=== PATIENT | male | born 1985 | race Caucasian/White ===

== ENCOUNTER 2016-10-28 00:01 | Emergency (ER) | payer SELFPAY ==
[~2016-10-28] VITALS: Ht 170.2 cm; Wt 64.6 kg
[2016-10-28 00:01] VITALS: TEMP 98.1; Ht 170.2 cm; Wt 64.6 kg
[~2016-10-28 00:01] MED LIST: ALPR1TAB7 PO; CEPH-583 PO; CYCL-375 PO; HYDR-4074 PO; NAPR220C11 PO; NAPR500T3 PO; TRAM50TA4 PO
--- OUTSIDE RECORDS SUMMARY | 2016-10-28 00:09 | XMS REPORT | Referral Summary ---
Author Author [facility], Family Medicine Organization [facility] Address Unknown Phone Unavailable Care Team Providers Care Lieutenant Ballistics Name Role Phone Mary Beth Berry Primary Care Physician [phone] Encounter Date(s): 08/14/15 - 08/14/15 [facility] [address] [place] [address]- Discharge Diagnosis: Chronic low back pain Discharge Diagnosis: Anxiety Discharge Diagnosis: Postherpetic neuralgia Discharge Disposition: 01-Home or Self Care Attending Physician: Maureen Rice APRN Admitting Physician: Maureen Rice APRN Vital Signs Most recent to 1 oldest [Reference Range]: Temperature Tympanic 36.4 degC [36.6-38.1 degC] *LOW* (08/14/15 2:46 PM) Peripheral Pulse 96 bpm Rate [60-100 bpm] (08/14/15 2:46 PM) Respiratory Rate 20 br/min [14-20 br/min] (08/14/15 2:46 PM) Blood Pressure 124/80 mmHg [90-140/60-90 mmHg] (08/14/15 2:46 PM) Problem List Condition Effective Dates Status Health Status Informant Chronic low back Active pain(Confirmed) Anxiety(Confirmed) Active Radiculopathy(Confir Active med) Allergies, Adverse Reactions, Alerts Substance Reaction Severity Status Latex Active Medications ALPRAZolam 1 mg oral tablet 1 mg 1 tabs, Oral, BID, as needed for anxiety, 0 Refill(s) Start Date: 07/02/15 Status: Ordered CeleXA 20 mg oral tablet 10 mg 0.5 tabs, Oral, Daily, # 15 tabs, 0 Refill(s), Pharmacy: [facility], 0.5 tabs Oral Daily Start Date: 08/14/15 Status: Ordered cyclobenzaprine 10 mg oral tablet 10 mg 1 tabs, Oral, TID, as needed for spasm, # 60 tabs, 0 Refill(s) Start Date: 01/16/15 Status: Ordered gabapentin 300 mg oral capsule 300 mg 1 caps, Oral, TID, # 60 caps, 3 Refill(s), Pharmacy: [id number], 1 caps Oral TID Start Date: 07/02/15 Status: Ordered H[place] 7.5 mg-325 mg oral tablet 1 tabs, Oral, BID, as needed for pain, # 10 tabs, 0 Refill(s) Start Date: 07/26/15 Status: Ordered [place]agan 7.5 mg-325 mg oral tablet tabs, Oral, BID, 0 Refill(s) Start Date: 07/02/15 Status: Ordered traMADol 50 mg oral tablet 50 mg 1 tabs, Oral, q4hr, as needed for pain, [facility], # 50 tabs, 0 Refill(s), 1 tabs Oral q4hr Start Date: 12/05/14 Status: Ordered Results No data available for this section Immunizations Vaccine Date Refusal Reason tetanus/diphth/pertuss (Tdap) adult/adol 09/04/13 Procedures No data available for this section Social History Social History Type Response Smoking Status Current every day smoker; Tobacco use per day: 1 Pack; Number of years: 12 Assessment and Plan Extracted from: Title: Office Visit Author: Maureen Rice APRN Date: 08/14/15 Note-neuralgia/anxiety Assessment/Plan Anxiety Discussed adding long-term medicationto decrease hisanxiety overall. Start Ladrzo50 mg one half tablet everyday. Side effects discussed. Follow-up with myself or Dr. Berry in one month. Encouraged him to continue following up with the therapist. Continue alprazolam twice a day as needed. Chronic low back pain Continue to follow with pain specialty. He voices he spilled his cyclobenzaprine. Wanted us to refill it. I encouraged him to make those medication refill requestthrough pain management. Ordered: Office Visit Level 3 Est 56837 Postherpetic neuralgia Continue gabapentin as needed. We'll likely be able to titrate off once hispain continues to improve. Ordered: Office Visit Level 3 Est [id number] Orders: citalopram, 10 mg 0.5 tabs, Oral, Daily, # 15 tabs, 0 Refill(s), Pharmacy: [facility], 0.5 tabs Oral Daily
--- OUTSIDE RECORDS SUMMARY | 2016-10-28 00:09 | XMS REPORT | Referral Summary ---
Author Author [facility] Organization [facility] Address Unknown Phone Unavailable Care Team Providers Care Events Intern Name Role Phone Mary Beth Berry Primary Care Physician [phone] Encounter VC Date(s): 07/02/15 - 07/02/15 [facility] [address] [place] [address] Discharge Diagnosis: Shingles Discharge Disposition: 01-Home or Self Care Attending Physician: Kole Berry MD Admitting Physician: Kole Berry MD Vital Signs Most recent to 1 oldest [Reference Range]: Temperature Tympanic 36.0 degC [36.6-38.1 degC] *LOW* (07/02/15 2:39 PM) Peripheral Pulse 88 bpm Rate [60-100 bpm] (07/02/15 2:39 PM) Respiratory Rate 16 br/min [14-20 br/min] (07/02/15 2:39 PM) Blood Pressure 110/56 mmHg [90-140/60-90 mmHg] (07/02/15 2:39 PM) Problem List Condition Effective Dates Status Health Status Informant Anxiety(Confirmed) Active Chronic low back Active pain(Confirmed) Radiculopathy(Confir Active med) Allergies, Adverse Reactions, Alerts No Known Medication Allergies Substance Reaction Severity Status Latex Active Medications acyclovir 800 mg oral tablet 800 mg 1 tabs, Oral, 5x/Day, X 7 days, # 35 tabs, 0 Refill(s), Pharmacy: [id number], 1 tabs Oral 5x/Day,x7 days Start Date: 07/02/15 Stop Date: 07/09/15 Status: Ordered ALPRAZolam 1 mg oral tablet 1 mg 1 tabs, Oral, Daily, as needed for anxiety, 0 Refill(s) Start Date: 07/02/15 Status: Ordered cyclobenzaprine 10 mg oral tablet 10 mg 1 tabs, Oral, TID, as needed for spasm, # 60 tabs, 0 Refill(s) Start Date: 01/16/15 Status: Ordered diclofenac sodium 75 mg oral delayed release tablet 75 mg 1 tabs, Oral, BID, # 60 tabs, 1 Refill(s), Pharmacy: [id number], 1 tabs Oral BID Start Date: 11/14/14 Status: Ordered Famvir 500 mg oral tablet 500 mg 1 tabs, Oral, q8hr, X 5 days, 0 Refill(s) Start Date: 07/02/15 Stop Date: 07/05/15 Status: Ordered gabapentin 300 mg oral capsule 300 mg 1 caps, Oral, TID, # 60 caps, 3 Refill(s), Pharmacy: [id number], 1 caps Oral TID Start Date: 07/02/15 Status: Ordered [place]ley 7.5 mg-325 mg oral tablet 1 tabs, Oral, q6hr, as needed for pain, # 30 tabs, 0 Refill(s) Start Date: 07/02/15 Status: Ordered Hurley 7.5 mg-325 mg oral tablet tabs, Oral, BID, 0 Refill(s) Start Date: 07/02/15 Status: Ordered predniSONE 20 mg oral tablet 60 mg 3 tabs, Oral, Daily, X 5 days, 0 Refill(s) Start Date: 07/02/15 Stop Date: 07/05/15 Status: Ordered traMADol 50 mg oral tablet [...] and Plan Extracted from: Title: Office Visit Note Author: Kole Berry MD Date: 07/02/15 Assessment/Plan Shingles I wrote a note for him tohis painmanagement physician recommending increasinghydrocodone to 7.5 mg 4 times a day as needed. And I gave him a prescription for 30 tablets additionally. I placed him on acyclovir 800 mg 5 times a day for 7 daysand gabapentin 300 mg 1 by mouth 3 times a day. I gave him a note for workto limit lifting to 10 pounds. He is to follow-up here if he's having further problems or difficulties. Ordered: Office Visit Level 3 Est [id number] Orders: acyclovir, 800 mg 1 tabs, Oral, 5x/Day, X 7 days, # 35 tabs, 0 Refill( s), Pharmacy: [id number], 1 tabs Oral 5x/Day,x7 days gabapentin, 300 mg 1 caps, Oral, TID, # 60 caps, 3 Refill(s), Pharmacy: [id number], 1 caps Oral TID HYDROcodone-acetaminophen, 1 tabs, Oral, q6hr, as needed for pain, # 30 tabs, 0 Refill(s)
--- OUTSIDE RECORDS SUMMARY | 2016-10-28 00:09 | XMS REPORT | Referral Summary ---
Author Author [facility], [facility] Care Organization [facility] Address Unknown Phone Unavailable Care Team Providers Care Shearer [employer] Name Role Phone Mary Beth Berry Primary Care Physician [phone] Encounter VC Date(s): 03/03/16 - 03/03/16 [facility] [address] [place] [address]- Discharge Diagnosis: Chronic pain Discharge Diagnosis: Anxiety Discharge Disposition: 01-Home or Self Care Attending Physician: Karan Hartmann PA-C Admitting Physician: Karan Hartmann PA-C Vital Signs Most recent to 1 oldest [Reference Range]: Temperature Tympanic 36.5 degC [36.6-38.1 degC] *LOW* (03/03/16 3:51 PM) Peripheral Pulse 88 bpm Rate [60-100 bpm] (03/03/16 3:51 PM) Blood Pressure 124/80 mmHg [90-140/60-90 mmHg] (03/03/16 3:51 PM) SpO2 96 % (03/03/16 3:51 PM) Problem List Condition Effective Dates Status [...] 0 Refill(s) Start Date: 01/16/15 Status: Ordered naproxen 500 mg oral tablet 500 mg 1 tabs, Oral, BID, as needed for pain, 0 Refill(s) Start Date: 02/05/16 Status: Ordered [place] 7.5 mg-325 mg oral tablet 1 tabs, Oral, BID, as needed for pain, # 10 tabs, 0 Refill(s) Start Date: 07/26/15 Status: Ordered traMADol 50 mg oral tablet 50 mg 1 tabs, Oral, q4hr, as needed for pain, elizabetht, # 50 tabs, 0 Refill(s), 1 tabs Oral q4hr Start Date: 12/05/14 Status: Ordered Results Urinalysis Most recent to 1 oldest [Reference Range]: UA Color Yellow (03/03/16 4:15 PM) UA Appear Cloudy *ABN* (03/03/16 4:15 PM) UA pH [5.0-8.0] 7.5 (03/03/16 4:15 PM) UA Leuk Est Negative [Negative] (03/03/16 4:15 PM) UA Nitrite Negative [Negative] (03/03/16 4:15 PM) UA Protein Negative [Negative] (03/03/16 4:15 PM) UA Glucose Negative [Negative] (03/03/16 4:15 PM) UA Ketones Negative [Negative] (03/03/16 4:15 PM) UA Urobilinogen 0.2 mg/dL [<=1.0 mg/dL] (03/03/16 4:15 PM) UA Bili [Negative] Negative (03/03/16 4:15 PM) UA Blood [Negative] Negative (03/03/16 4:15 PM) UA Spec Grav 1.020 [1.003-1.030] (03/03/16 4:15 PM) Type Clean Catch (03/03/16 4:15 PM) Immunizations Vaccine Date Refusal Reason tetanus/diphth/pertuss (Tdap) adult/adol 09/04/13 Procedures Procedure Date Related Diagnosis Body Site Ankle1 Circumcision2 Hip3 1Left ankle surgery to turn foot in. 2At age 15 years 3Hip surgery to zahira right foot in. Social History Social History Type Response Smoking Status Current every day smoker; Tobacco use per day: 1 Pack; Number of years: 12 Assessment and Plan Extracted from: Title: Low back and abdomen pain Author: Karan Hartmann PA-C Date: 03/03 Assessment/Plan Abdominal pain, acute No clear findings were found during exam, patient was given a handout on acute abdomen if he develops any of the symptoms follow- up for additional assessment. Recommend supportive care. Rest. Practice good hand hygiene. Increase fluids. FU with PCP if not improving, worsening symptoms, or as needed. Questions were answered. Patient verbalized understanding. Patient left in stable condition. Anxiety Patient reports although continued stress he feels like hehas increased stability with the medications he is currently on. Chronic pain Is involved in the chronic pain management treatment. Addendum Urinalysis was cloudy but negative. by Karan Hartmann PA-C on March 03, 2016 19:14:17 CDT
--- OUTSIDE RECORDS SUMMARY | 2016-10-28 00:09 | XMS REPORT | Referral Summary ---
Author Author [facility], Family Medicine Organization [facility] Address Unknown Phone Unavailable Care Team Providers Care Humane Agent Name Role Phone Mary Beth Berry Primary Care Physician [phone] Encounter VC Date(s): 09/07/15 - 09/07/15 [facility], [address] [place] [address] Discharge Disposition: 01-Home or Self Care Attending Physician: Matt Nagy MD Admitting Physician: Matt Nagy MD Vital Signs Most recent to 1 oldest [Reference Range]: Temperature Tympanic 36 degC [36.6-38.1 degC] *LOW* (09/07/15 11:15 AM) Peripheral Pulse 62 bpm Rate [60-100 bpm] (09/07/15 11:15 AM) Respiratory Rate 18 br/min [14-20 br/min] (09/07/15 11:15 AM) Blood Pressure 102/62 mmHg [90-140/60-90 mmHg] (09/07/15 11:15 AM) Problem List Condition Effective Dates Status Health [...] Daily, # 15 tabs, 0 Refill(s), [id number], 0.5 tabs Oral Daily Start Date: 08/14/15 Status: Ordered cyclobenzaprine 10 mg oral tablet 10 mg 1 tabs, Oral, TID, as needed for spasm, # 60 tabs, 0 Refill(s) Start Date: 01/16/15 Status: Ordered [place] 7.5 mg-325 mg oral tablet 1 tabs, [...] 12 Assessment and Plan Extracted from: Title: Ambulatory Patient Education Author: Matt Nagy MD Date: Family Medicine Fingertip Injuries and Amputations Fingertip injuries are common and often get injured because they are last to escape when pulling your hand out of harm's way. You have amputated (cut off) part of your finger. How this turns out depends largely on how much was amputated. If just the tip is amputated, often the end of the finger will grow back and the finger may return to much the same as it was before the injury. If more of the finger is missing, your caregiver has done the best with the tissue remaining to allow you to keep as much finger as is possible. Your caregiver after checking your injury has tried to leave you with a painless fingertip that has durable, feeling skin. If possible, your caregiver has tried to maintain the finger's length and appearance and preserve its fingernail. Please read the instructions outlined below and refer to this sheet in the next few weeks. These instructions provide you with general information on caring for yourself. Your caregiver may also give you specific instructions. While your treatment has been done according to the most current medical practices available, unavoidable complications occasionally occur. If you have any problems or questions after discharge, please call your caregiver. HOME CARE INSTRUCTIONS You may resume normal diet and activities as directed or allowed. Keep your hand elevated above the level of your heart. This helps decrease pain and swelling. Keep ice packs (or a bag of ice wrapped in a towel) on the injured area for 15-20 minutes, 03-04 times per day, for the first two days. Change dressings if necessary or as directed. Clean the wound daily or as directed. Only take [id number] or prescription medicines for pain, discomfort , or fever as directed by your caregiver. Keep appointments as directed. SEEK IMMEDIATE MEDICAL CARE IF: You develop redness, swelling, numbness or increasing pain in the wound. There is pus coming from the wound. You develop an unexplained oral temperature above 102 F (38.9 C) or as your caregiver suggests. There is a foul (bad) smell coming from the wound or dressing. There is a breaking open of the wound (edges not staying together) after sutures or david have been removed. MAKE SURE YOU: Understand these instructions. Will watch your condition. Will get help right away if you are not doing well or get worse. This information is not intended to replace advice given to you by your health care provider. Make sure you discuss any questions you have with your health care provider. Document Released: 04/08/2006 Document Revised: 08/09/2012 Document Reviewed: Exit[employer] Patient Information 2015 [employer]. No follow up information was provided. Extracted from: Title: finger laceration--suture Author: Matt Nagy MD Date: 09/07/15 removal Impression and Plan Diagnosis Laceration of middle finger ([id number] S61.218A, Working, Medical). Plan: 1) Sutures were removed without difficulty. 2) Patient released. No restrictions--but be careful with it. 3) Followup as needed if any problems with the finger. It looks great today.. Orders Orders (Selected) Outpatient Orders Ordered Postoperative Est [id number]: . Dx/Order Association Plan: Diagnosis: Laceration of middle finger Comment: Ordered: Postoperative Est [id number]; 09/07/15 11:36:00 CDT, Laceration of middle finger End of Orders .
--- OUTSIDE RECORDS SUMMARY | 2016-10-28 00:09 | XMS REPORT | Referral Summary ---
Author Author [facility], Family Medicine Organization [facility] Address Unknown Phone Unavailable Care Team Providers Care Teletype Mechanic Name Role Phone Mary Beth Berry Primary Care Physician [phone] Encounter Date(s): 10/22/15 - 10/22/15 [facility] [address] [place] [address]- Discharge Diagnosis: Radiculopathy Discharge Diagnosis: Mid back pain Discharge Diagnosis: Chronic low back pain Discharge Diagnosis: Anxiety Discharge Disposition: 01-Home or Self Care Attending Physician: Maureen Rice APRN Admitting Physician: Maureen Rice APRN Vital Signs Most recent to 1 oldest [Reference Range]: Temperature Tympanic 35.8 degC [36.6-38.1 degC] *LOW* (10/22/15 12:54 PM) Peripheral Pulse 88 bpm Rate [60-100 bpm] (10/22/15 12:54 PM) Respiratory Rate 16 br/min [14-20 br/min] (10/22/15 12:54 PM) Blood Pressure 128/74 mmHg [90-140/60-90 mmHg] (10/22/15 12:54 PM) Problem List Condition Effective Dates Status [...] 0 Refill(s) Start Date: 01/16/15 Status: Ordered [place] 7.5 mg-325 mg oral tablet 1 tabs, Oral, BID, as needed for pain, # 10 tabs, 0 Refill(s) Start Date: 07/26/15 Status: Ordered traMADol 50 mg oral tablet 50 mg 1 tabs, Oral, q4hr, as needed for pain, traci, # 50 tabs, 0 Refill(s), 1 tabs [...] and Plan Extracted from: Title: Office Visit Note-back pain Author: Maureen Rice APRN Date: Assessment/Plan 1.Mid back pain Discussed with patient I felt his pain was muscular in nature. It is relatively diffuse with decreased flexibility. I think he could benefit fromphysical therapy. May continue his usual medications for chronic back pain. No changesin his usual regimen. Encouraged him to use heat, muscle rubsthe TENS unit that he has. Patient request advanced physical therapy. Referral sent. Recommend he try to avoid activities that exacerbate the pain. This with his legs. Avoid twisting and bending. Encourage stretching exercises. Ordered: Physical Therapy Communication Order 2.Chronic low back pain To follow with pain management. Ordered: Physical Therapy Communication Order 3.Anxiety Recommend he discuss further with pain management starting long- term medication for anxiety prevention.That would be a safer choice than alprazolam. 4.Radiculopathy Let us know if he sensation gets worse. This point do not feel like any imaging is needed.
--- OUTSIDE RECORDS SUMMARY | 2016-10-28 00:09 | XMS REPORT | Continuity of Care Document ---
Author Author [facility] Organization [facility] Address Unknown Phone Unavailable Care Team Providers Care Pit Hoist Operator Name Role Phone GENESIS MORRISON MD Primary Care Physician [phone] Insurance Providers Guarantor Lakhwinder Sawyer Address [address] [place] [address] Email DENIED/NO TO PT [place] Payer [employer] Policy Number [id number] Subscriber's Name Lakhwinder Sawyer Relationship 18 Self Effective Date 15 Expiration Date 15 Chief Complaint and Reason for Visit Chief Complaint Skin Rash/Abscess Reason for Visit [id number] Problems Active Problems Medical Problem Onset Date Status Accidental overdose Unknown Acute Alcohol abuse Unknown Chronic Anxiety Unknown Acute Anxiety Unknown Acute Anxiety attack Unknown Acute Asthma Unknown Chronic Asystole Unknown Resolved Asystole Unknown Acute Atypical chest pain Unknown Acute Back pain, chronic Unknown Acute Bipolar disorder Unknown Chronic Bronchitis Unknown Acute Cough Unknown Acute Fever Unknown Acute Fever Unknown Acute Hemoptysis Unknown Acute Migraine Unknown Chronic Musculoskeletal chest pain Unknown Acute Restless legs Unknown Acute Scoliosis Unknown Chronic Self mutilating behavior Unknown Acute Self mutilating behavior Unknown Acute Shingles rash Unknown Acute Tobacco dependency Unknown Chronic Vasovagal syncope Unknown Resolved Viral syndrome Unknown Acute Past Problems Medical Problem Onset Date Bug bites Unknown Skin rash Unknown Medications Current Home Medications Medication Dose Units Route Directions Days Qty Instructions Start Date Alprazolam 1 Mg Tablet 1 Mg Oral Daily 02/02/16 Cephalexin (Keflex) 500 Mg Capsule 500 Mg Oral Three Times A Day 7 Days 21 Capsule 02/02/16 Cyclobenzaprine Hcl 10 Mg Tablet 10 Mg Oral Daily as needed for Muscle Spasm 02/02/16 Hydrocodone/Apap 7.5/325 Mg (Charlotte 7.5-325 Tablet) 7.5-325 Tablet 1 Tab Oral Every 4 Hours as needed for Pain 02/02/16 Naproxen 500 Mg Tablet 1 Tab Oral Twice A Day as needed for Pain 5 Days 10 Tablet 02/02/16 Naproxen Sodium (Aleve) 220 Mg Capsule 440 Mg Oral As Needed 08/14 Tramadol Hcl 50 Mg Tablet 50 Mg Oral Daily as needed for Pain Past Home Medications Medication Directions Ordered Status Amitriptyline Hcl 10 Mg Tablet, 10 Mg Oral Twice A Day 09/21/12 Discontinued Diclofenac Sodium 75 Mg Tablet.dr, 1 Tab Oral Twice Daily With Meals Discontinued Famciclovir (Famvir) 500 Mg Tablet, 1 Tab Oral Three Times A Day 06/30/15 Discontinued Gabapentin 100 Mg Capsule, 1 Cap Oral Twice A Day 01/13/15 Discontinued Gabapentin 100 Mg Capsule, 200 Mg Oral Twice A Day 09/21/12 Discontinued No Regular Meds , 05/17/08 Discontinued Prednisone 20 Mg Tablet, 60 Mg Oral Daily 06/30/15 Discontinued Social History Social History Problem Response Recorded Date/Time Onset Date Status Chewing Tobacco Status No 09/04/2013 12:50am Not Applicable Not Applicable Hx Substance Use No 02/02/2016 4:20pm Not Applicable Not Applicable Hx Alcohol Use Y OCCASIONALLY 02/02/2016 4:20pm Not Applicable Not Applicable Has the pt used tobacco in the last 12 months Yes 06/11/2014 6:30pm Not Applicable Not Applicable Tobacco Usage smoke 06/12/2014 10:32am Not Applicable Not Applicable Query Response Start Date Stop Date Smoking Status Current every day smoker Hospital Discharge Instructions No hospital discharge instructions. Plan of Care Discharge Date 02/02/16 5:00pm Disposition 01 DISCHARGED HOME, SELF-CARE Condition at Discharge Stable Instructions/Education Provided DI for Insect Bites and Stings Forms Provided Return to Work/School Permit Prescriptions See Medication Section Referrals CHRISTINA OLSEN MD Address: [address] [place] [address] [phone] Note: Additional Instructions/Education Take Keflex antibiotic three times a day for 7 days Get OTC Cortizone 1% or 2% cream. Use topically to all bites twice a day for 5 days Get OTC Zyrtec or Claritin and take it daily for anti-histamine May take Naproxen 500mg BID for pain/inflammation. May also use Charlotte you have at home for pain If symptoms are not improved or if they are worse follow up with Dr Jamal Argueta Return to ER for worsening symptoms Care Plan and Goals Physician Care Plan Problem: Probably Insect bites with erythema Goal: Follow up with primary care provider Instructions: Take Keflex antibiotic three times a day for 7 days Get OTC Cortizone 1% or 2% cream. Use topically to all bites twice a day for 5 days Get OTC Zyrtec or Claritin and take it daily for anti-histamine May take Naproxen 500mg BID for pain/inflammation. May also use Charlotte you have at home for pain If symptoms are not improved or if they are worse follow up with Dr Jamal Argueta Return to ER for worsening symptoms Functional Status No functional status results. Allergies, Adverse Reactions, Alerts Allergen Type Severity Reaction Status Last Updated Latex Allergy Severe Active 02/02/16 Immunizations Query Response on File Recorded Date/Time Hx Influenza Vaccination No 01/13/15 6:13am Hx Pneumococcal Vaccination No 01/13/15 6:13am Hx Tetanus, Diptheria, Pertussis Yes 01/13/15 6:13am Hx Influenza Vaccination No 01/13/15 6:13am Hx Tetanus, Diptheria, Pertussis Yes 01/13/15 6:13am Influenza Vaccine Hx NO 02/02/16 4:20pm Vital Signs Acute Vital Signs Vital Response Date/Time Temperature (Fahrenheit) 98.2 deg F (96.8 - 99.1) 02/02/2016 5:00pm Temperature (Calculated Celsius) 36.65777 degrees C (36.0 - 37.3) 02/02/2016 5:00pm Pulse Rate (adult) 65 bpm (60 - 100) 02/02/2016 5:00pm Respiratory Rate 16 breaths/min (10 - 20) 02/02/2016 5:00pm O2 Sat by Pulse Oximetry 98 % (90 - 100) 02/02/2016 5:00pm Blood Pressure 127/75 mm Hg 02/02/2016 5:00pm Height (Feet) 5 feet 02/02/2016 2:17pm Height (Inches) 7.00 inches 02/02/2016 2:17pm Weight (Kilograms) 62.600 kg 02/02/2016 2:17pm Body Mass Index (BMI) 21.0 02/02/2016 2:17pm Results No known relevant diagnostic tests, laboratory data and/or discharge summary. Procedures No known history of procedures. Encounters Encounter Location Arrival/Admit Date Discharge/Depart Date Attending Provider Departed Emergency Room [facility] 02/02/16 1:42pm 02/02/16 5: 00pm POWER KENNEDY MD Recent Diagnosis
--- OUTSIDE RECORDS SUMMARY | 2016-10-28 00:09 | XMS REPORT | Referral Summary ---
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 Name Role Phone Mary Beth Berry Primary Care Physician [phone] Encounter Date(s): 07/15/16 - 07/15/16 [facility] [address] [place] [address] Discharge Diagnosis: Chronic low back pain Discharge Diagnosis: Anxiety Discharge Disposition: 01-Home or Self Care Attending Physician: Kole Berry MD Admitting Physician: Kole Berry MD Vital Signs Most recent to 1 oldest [Reference Range]: Temperature Tympanic 36.0 degC [36.6-38.1 degC] *LOW* (07/15/16 10:27 AM) Peripheral Pulse 84 bpm Rate [60-100 bpm] (07/15/16 10:27 AM) Respiratory Rate 16 br/min [14-20 br/min] (07/15/16 10:27 AM) Blood Pressure 114/76 mmHg [90-140/60-90 mmHg] (07/15/16 10:27 AM) Problem List Condition Effective Dates Status Health Status Informant Chronic low back Active pain(Confirmed) Anxiety(Confirmed) Active Radiculopathy(Confir Active med) Allergies, Adverse Reactions, Alerts Substance Reaction Severity Status Latex Active Medications ALPRAZolam 1 mg oral tablet 1 mg 1 tabs, Oral, TID, as needed for anxiety, Archie, # 30 tabs, 0 Refill(s) Start Date: 07/15/16 Status: Ordered cyclobenzaprine 10 mg oral tablet 10 mg 1 tabs, Oral, TID, as needed for spasm, # 60 tabs, 0 Refill(s) Start Date: 01/16/15 Status: Ordered Cymbalta 30 mg oral delayed release capsule 30 mg 1 caps, Oral, Daily, do not crush or chew, # 30 caps, 6 Refill(s), Pharmacy: [facility] [id number], 1 caps Oral Daily,Instr:do not crush or chew Start Date: 07/15/16 Status: Ordered Fiber Lax Oral, Daily, 0 Refill(s) Start Date: 07/15/16 Status: Ordered naproxen 500 mg oral tablet 500 mg 1 tabs, Oral, BID, as needed for pain, 0 Refill(s) Start Date: 02/05/16 Status: Ordered [place]ilwell 7.5 mg-325 mg oral tablet 1 tabs, Oral, TID, as needed for pain, # 30 tabs, 0 Refill(s) Start Date: 07/15/16 Status: Ordered traMADol 50 mg oral tablet 50 mg 1 tabs, Oral, q4hr, as needed for pain, [facility], # 50 tabs, 0 Refill(s), 1 tabs Oral q4hr Start Date: 12/05/14 Status: Ordered Results No data available for this section Immunizations Given and Recorded Vaccine Date Status Refusal Reason tetanus/diphth/pertuss (Tdap) adult/adol 09/04/13 Recorded Procedures Procedure Date Related Diagnosis Body Site [...] Visit Note Author: Kole Berry MD Date: 07/15/16 Assessment/Plan 1.Anxiety I refilled his alprazolam today. Discussed other options and treatment. I suggested trying Cymbalta. In the past this is been too expensive am hoping he might feel to afford the generic. We'll start him out 30 mg a day. He'll keep us posted as to whether he can afford it andhow that's working. 2.Chronic low back pain I refilled hydrocodone today he's continuing towork onfinding a new physicianI encouraged him to continue with that. I did discuss with him that I thought the Cymbalta could be beneficial for his chronic pain as well.
--- OUTSIDE RECORDS SUMMARY | 2016-10-28 00:09 | XMS REPORT | Referral Summary ---
Author Organization Unknown Address Unknown Phone Unavailable Care Team Providers Care Physician Underwriter Name Role Phone Mary Beth Berry Primary Care Physician [phone] Encounter VC Date(s): 09/15/14 - 09/15/14 [address] Gomez, [place] Family [address] [place] [address] Discharge Diagnosis: Anxiety Discharge Diagnosis: Acute neck pain Discharge Diagnosis: Chronic low back pain Discharge Disposition: Home or Self Care Attending Physician: Kole Berry MD Admitting Physician: Kole Berry MD Vital Signs Most recent to 1 oldest [Reference Range]: Temperature Tympanic 36.6 degC [36.6-38.1 degC] (09/15/14 3:54 PM) Peripheral Pulse 104 bpm Rate [60-100 bpm] *HI* (09/15/14 3:54 PM) Respiratory Rate 16 br/min [14-20 br/min] (09/15/14 3:54 PM) Blood Pressure 104/84 mmHg [90-140/60-90 mmHg] (09/15/14 3:54 PM) Problem List Condition Effective Dates Status Health Status Informant Anxiety(Confirmed) Active Chronic low back Active pain(Confirmed) Radiculopathy(Confir Active med) Allergies, Adverse Reactions, Alerts No Known Medication Allergies Substance Reaction Severity Status Latex Active Medications cyclobenzaprine 10 mg oral tablet 1 tabs, Oral, TID, as needed for spasm, # 30 tabs, 0 Refill(s), Pharmacy: [id number], 1 tabs Oral TID,PRN:as needed for spasm Start Date: 09/15/14 Status: Ordered diclofenac sodium 75 mg oral delayed release tablet 1 tabs, Oral, BID, # 60 tabs, 1 Refill(s), Pharmacy: [id number], 1 tabs Oral BID Start Date: 09/15/14 Status: Ordered traMADol 50 mg oral tablet 1 tabs, Oral, q4hr, as needed for pain, [facility], # 50 tabs, 0 Refill(s), 1 tabs Oral q4hr Special Instructions: [facility] Start Date: 09/11/14 Status: Ordered Xanax 1 mg, Oral, TID, as needed for anxiety, 0 Refill(s) Start Date: 09/15/14 Status: Ordered Results No data available for this section Immunizations Vaccine Date Refusal Reason tetanus/diphth/pertuss (Tdap) adult/adol 09/04/13 Procedures No data available for this section Social History Social History Type Response Smoking Status Current every day smoker; Tobacco use per day: 1 Pack; Number of years: 12 Assessment and Plan Extracted from: Title: Ambulatory Patient Education Author: Kole Berry MD Date: Family Medicine Cervical Strain and Sprain (Whiplash) with Rehab Cervical strain and sprains are injuries that commonly occur with "whiplash" injuries. Whiplash occurs when the neck is forcefully whipped backward or forward, such as during a motor vehicle accident. The muscles, ligaments, tendons, discs and nerves of the neck are susceptible to injury when this occurs. SYMPTOMS Pain or stiffness in the front and/or back of neck Symptoms may present immediately or up to 24 hours after injury. Dizziness, headache, nausea and vomiting. Muscle spasm with soreness and stiffness in the neck. Tenderness and swelling at the injury site. CAUSES Whiplash injuries often occur during contact sports or motor vehicle accidents. RISK INCREASES WITH: Osteoarthritis of the spine. Situations that make head or neck accidents or trauma more likely. High-risk sports (football, rugby, wrestling, hockey, auto racing, gymnastics, diving, contact karate or boxing). Poor strength and flexibility of the neck. Previous neck injury. Poor tackling technique. Improperly fitted or padded equipment. PREVENTION Learn and use proper technique (avoid tackling with the head, spearing and head-butting; use proper falling techniques to avoid landing on the head). Warm up and stretch properly before activity. Maintain physical fitness: Strength, flexibility and endurance. Cardiovascular fitness. Wear properly fitted and padded protective equipment, such as padded soft collars, for participation in contact sports. PROGNOSIS Recovery for cervical strain and sprain injuries is dependent on the extent of the injury. These injuries are usually curable in 1 week to 3 months with appropriate treatment. RELATED COMPLICATIONS Temporary numbness and weakness may occur if the nerve roots are damaged, and this may persist until the nerve has completely healed. Chronic pain due to frequent recurrence of symptoms. Prolonged healing, especially if activity is resumed too soon (before complete recovery). TREATMENT Treatment initially involves the use of ice and medication to help reduce pain and inflammation. It is also important to perform strengthening and stretching exercises and modify activities that worsen symptoms so the injury does not get worse. These exercises may be performed at home or with a therapist. For patients who experience severe symptoms, a soft padded collar may be recommended to be worn around the neck. Improving your posture may help reduce symptoms. Posture improvement includes pulling your chin and abdomen in while sitting or standing. If you are sitting, sit in a firm chair with your buttocks against the back of the chair. While sleeping, try replacing your pillow with a small towel rolled to 2 inches in diameter, or use a cervical pillow or soft cervical collar. Poor sleeping positions delay healing. For patients with nerve root damage, which causes numbness or weakness, the use of a cervical traction apparatus may be recommended. Surgery is rarely necessary for these injuries. However, cervical strain and sprains that are present at (congenital ) may require surgery. MEDICATION If pain medication is necessary, nonsteroidal anti-inflammatory medications , such as aspirin and ibuprofen, or other minor pain relievers, such as acetaminophen, are often recommended. Do not take pain medication for 7 days before surgery. Prescription pain relievers may be given if deemed necessary by your caregiver. Use only as directed and only as much as you need. HEAT AND COLD: Cold treatment (icing) relieves pain and reduces inflammation. Cold treatment should be applied for 10 to 15 minutes every 2 to 3 hours for inflammation and pain and immediately after any activity that aggravates your symptoms. Use ice packs or an ice massage. Heat treatment may be used prior to performing the stretching and strengthening activities prescribed by your caregiver, physical therapist, or sports medicine trainer. Use a heat pack or a warm soak. SEEK MEDICAL CARE IF: Symptoms get worse or do not improve in 2 weeks despite treatment. New, unexplained symptoms develop (drugs used in treatment may produce side effects). EXERCISES RANGE OF MOTION (ROM) AND STRETCHING EXERCISES - Cervical Strain and Sprain These exercises may help you when beginning to rehabilitate your injury. In order to successfully resolve your symptoms, you must improve your posture. These exercises are designed to help reduce the forward-head and rounded- shoulder posture which contributes to this condition. Your symptoms may resolve with or without further involvement from your physician, physical therapist or sports medicine trainer. While completing these exercises, remember: Restoring tissue flexibility helps normal motion to return to the joints. This allows healthier, less painful movement and activity. An effective stretch should be held for at least 20 seconds, although you may need to begin with shorter hold times for comfort. A stretch should never be painful. You should only feel a gentle lengthening or release in the stretched tissue. STRETCH- Axial Extensors Lie on your back on the floor. You may bend your knees for comfort. Place a rolled up hand towel or dish towel, about 2 inches in diameter, under the part of your head that makes contact with the floor. Gently tuck your chin, as if trying to make a "double chin," until you feel a gentle stretch at the base of your head. Hold seconds. Repeat times. Complete this exercise times per day. STRETECH - Axial Extension Stand or sit on a firm surface. Assume a good posture: chest up, shoulders drawn back, abdominal muscles slightly tense, knees unlocked (if standing) and feet hip width apart. Slowly retract your chin so your head slides back and your chin slightly lowers.Continue to look straight ahead. You should feel a gentle stretch in the back of your head. Be certain not to feel an aggressive stretch since this can cause headaches later. Hold for seconds. Repeat times. Complete this exercise times per day. STRETCH Cervical Side Bend Stand or sit on a firm surface. Assume a good posture: chest up, shoulders drawn back, abdominal muscles slightly tense, knees unlocked (if standing) and feet hip width apart. Without letting your nose or shoulders move, slowly tip your right / left ear to your shoulder until your feel a gentle stretch in the muscles on the opposite side of your neck. Hold seconds. Repeat times. Complete this exercise times per day. STRETCH Cervical Rotators Stand or sit on a firm surface. Assume a good posture: chest up, shoulders drawn back, abdominal muscles slightly tense, knees unlocked (if standing) and feet hip width apart. Keeping your eyes level with the ground, slowly turn your head until you feel a gentle stretch along the back and opposite side of your neck. Hold seconds. Repeat times. Complete this exercise times per day. RANGE OF MOTION - Neck Circles Stand or sit on a firm surface. Assume a good posture: chest up, shoulders drawn back, abdominal muscles slightly tense, knees unlocked (if standing) and feet hip width apart. Gently roll your head down and around from the back of one shoulder to the back of the other. The motion should never be forced or painful. Repeat the motion 10-20 times, or until you feel the neck muscles relax and loosen. Repeat times. Complete the exercise times per day. STRENGTHENING EXERCISES - Cervical Strain and Sprain These exercises may help you when beginning to rehabilitate your injury. They may resolve your symptoms with or without further involvement from your physician, physical therapist or sports medicine trainer. While completing these exercises, remember: Muscles can gain both the endurance and the strength needed for everyday activities through controlled exercises. Complete these exercises as instructed by your physician, physical therapist or sports medicine trainer. Progress the resistance and repetitions only as guided. You may experience muscle soreness or fatigue, but the pain or discomfort you are trying to eliminate should never worsen during these exercises. If this pain does worsen, stop and make certain you are following the directions exactly. If the pain is still present after adjustments, discontinue the exercise until you can discuss the trouble with your clinician. STRENGTH Cervical Flexors, Isometric Face a wall, standing about [address] small pillow, a ball about 6-8 inches in diameter, or a folded towel between your forehead and the wall. Slightly tuck your chin and gently push your forehead into the soft object. Push only with mild to moderate intensity, building up tension gradually. Keep your jaw and forehead relaxed. Hold 10 to 20 seconds. Keep your breathing relaxed. Release the tension slowly. Relax your neck muscles completely before you start the next repetition. Repeat times. Complete this exercise times per day. STRENGTH- Cervical Lateral Flexors, Isometric Stand about 6 inches away from a wall. Place a small pillow, a ball about 6 -8 inches in diameter, or a folded towel between the side of your head and the wall. Slightly tuck your chin and gently tilt your head into the soft object. Push only with mild to moderate intensity, building up tension gradually. Keep your jaw and forehead relaxed. Hold 10 to 20 seconds. Keep your breathing relaxed. Release the tension slowly. Relax your neck muscles completely before you start the next repetition. Repeat times. Complete this exercise times per day. STRENGTH Cervical Extensors, Isometric Stand about 6 inches away from a wall. Place a small pillow, a ball about 6 -8 inches in diameter, or a folded towel between the back of your head and the wall. Slightly tuck your chin and gently tilt your head back into the soft object. Push only with mild to moderate intensity, building up tension gradually. Keep your jaw and forehead relaxed. Hold 10 to 20 seconds. Keep your breathing relaxed. Release the tension slowly. Relax your neck muscles completely before you start the next repetition. Repeat times. Complete this exercise times per day. POSTURE AND BODY MECHANICS CONSIDERATIONS - Cervical Strain and Sprain Keeping correct posture when sitting, standing or completing your activities will reduce the stress put on different body tissues, allowing injured tissues a chance to heal and limiting painful experiences. The following are general guidelines for improved posture. Your physician or physical therapist will provide you with any instructions specific to your needs. While reading these guidelines, remember: The exercises prescribed by your provider will help you have the flexibility and strength to maintain correct postures. The correct posture provides the optimal environment for your joints to work. All of your joints have less wear and tear when properly supported by a spine with good posture. This means you will experience a healthier, less painful body. Correct posture must be practiced with all of your activities, especially prolonged sitting and standing. Correct posture is as important when doing repetitive low-stress activities (typing) as it is when doing a single heavy- load activity (lifting). PROLONGED STANDING WHILE SLIGHTLY LEANING FORWARD When completing a task that requires you to lean forward while standing in one place for a long time, place either foot up on a stationary 2-4 inch high object to help maintain the best posture. When both feet are on the ground, the low back tends to lose its slight inward curve. If this curve flattens (or becomes too large), then the back and your other joints will experience too much stress, fatigue more quickly and can cause pain. RESTING POSITIONS Consider which positions are most painful for you when choosing a resting position. If you have pain with flexion-based activities (sitting, bending, stooping, squatting), choose a position that allows you to rest in a less flexed posture. You would want to avoid curling into a position on your side. If your pain worsens with extension-based activities (prolonged standing, working overhead), avoid resting in an extended position such as sleeping on your stomach. Most people will find more comfort when they rest with their spine in a more neutral position, neither too rounded nor too arched. Lying on a non-sagging bed on your side with a pillow between your knees, or on your back with a pillow under your knees will often provide some relief. Keep in mind , being in any one position for a prolonged period of time, no matter how correct your posture, can still lead to stiffness. WALKING Walk with an upright posture. Your ears, shoulders and hips should all line-up. OFFICE WORK When working at a desk, create an environment that supports good, upright posture. Without extra support, muscles fatigue and lead to excessive strain on joints and other tissues. CHAIR: A chair should be able to slide under your desk when your back makes contact with the back of the chair. This allows you to work closely. The chair's height should allow your eyes to be level with the upper part of your monitor and your hands to be slightly lower than your elbows. Body position: Your feet should make contact with the floor. If this is not possible, use a foot rest. Keep your ears over your shoulders. This will reduce stress on your neck and low back. Document Released: 05/18/2006 Document Revised: 09/12/2013 Document Reviewed: [employer] Patient Information 2014 [employer] [facility]. No follow up information was provided. Extracted from: Title: Office Visit Note Author: Kole Berry MD Date: 09/15/14 Assessment/Plan Acute neck pain I think this is muscular I recommended discontinuing ibuprofen and starting diclofenac 75 mg twice a day regularly over the next week to 10 days. Is wondering about chiropractic treatment I think that could be beneficial for him he may try it. Ordered: Office Visit Level 3 Est 29831 Anxiety Continue alprazolam if he is having increased anxiety we may want to restart citalopram. Ordered: Office Visit Level 3 Est 61297 Chronic low back pain Diclofenac as mentioned above cyclobenzaprine and tramadol as needed. Heat and rest. If not improving follow-up. Ordered: Office Visit Level 3 Est 15040 Orders: cyclobenzaprine, 1 tabs, Oral, TID, as needed for spasm, # 30 tabs, 0 Refill(s), Pharmacy: [id number], 1 tabs Oral TID,PRN:as needed for spasm diclofenac, 1 tabs, Oral, BID, # 60 tabs, 1 Refill(s), Pharmacy: [id number], 1 tabs Oral BID
--- OUTSIDE RECORDS SUMMARY | 2016-10-28 00:09 | XMS REPORT | Referral Summary ---
Author Organization Unknown Address Unknown Phone Unavailable Care Team Providers Care Real Estate Manager Name Role Phone Mary Beth Berry Primary Care Physician [phone] Encounter VC Date(s): 08/02/14 - 08/02/14 [address] Gomez, Fernando Family [address] [place] [address]- Discharge Diagnosis: Chronic low back pain Discharge Diagnosis: Anxiety Discharge Disposition: Home or Self Care Attending Physician: Kole Berry MD Admitting Physician: Kole Berry MD Vital Signs Most recent to 1 oldest [Reference Range]: Temperature Tympanic 35.8 degC [36.6-38.1 degC] *LOW* (08/02/14 9:17 AM) Peripheral Pulse 88 bpm Rate [60-100 bpm] (08/02/14 9:17 AM) Respiratory Rate 16 br/min [14-20 br/min] (08/02/14 9:17 AM) Blood Pressure 120/74 mmHg [90-140/60-90 mmHg] (08/02/14 9:17 AM) Problem List Condition Effective Dates Status Health Status Informant Anxiety(Confirmed) Active Chronic low back Active pain(Confirmed) Radiculopathy(Confir Active med) Allergies, Adverse Reactions, Alerts No Known Medication Allergies Substance Reaction Severity Status Latex Active Medications Advair Diskus 250 mcg-50 mcg inhalation powder 1 puffs, Inhalation, BID, 0 Refill(s) Start Date: 06/16/14 Status: Ordered cyclobenzaprine 10 mg oral tablet 1 tabs, Oral, TID, as needed for spasm, # 30 tabs, 0 Refill(s) Start Date: 06/16/14 Status: Ordered ibuprofen 200 mg oral capsule 1 caps, Oral, q6hr, # 100 caps, 0 Refill(s), other reason (Rx) Start Date: 08/02/14 Status: Ordered traMADol 50 mg oral tablet 1 tabs, Oral, q4hr, as needed for pain, [facility], # 50 tabs, 0 Refill(s), 1 tabs Oral q4hr Special Instructions: [facility] Start Date: 08/02/14 Status: Ordered Xanax 1 mg oral tablet 1 tabs, Oral, TID, as needed for anxiety, [facility], # 30 tabs, 0 Refill(s) Special Instructions: [facility] Start Date: 08/02/14 Status: Ordered Results No data available for this section Immunizations Vaccine Date Refusal Reason tetanus/diphth/pertuss (Tdap) adult/adol 09/04/13 Procedures No data available for this section Social History Social History Type Response Smoking Status Current every day smoker; Tobacco use per day: 1 Pack; Number of years: 12 Assessment and Plan Extracted from: Title: Ambulatory Patient Education Author: Kole Berry MD Date: Family Medicine Anxiety and Panic Attacks Your caregiver has informed you that you are having an anxiety or panic attack. There may be many forms of this. Most of the time these attacks come suddenly and without warning. They come at any time of day, including periods of sleep, and at any time of life. They may be strong and unexplained. Although panic attacks are very scary, they are physically harmless. Sometimes the cause of your anxiety is not known. Anxiety is a protective mechanism of the body in its fight or flight mechanism. Most of these perceived danger situations are actually nonphysical situations (such as anxiety over losing a job). CAUSES The causes of an anxiety or panic attack are many. Panic attacks may occur in otherwise healthy people given a certain set of circumstances. There may be a genetic cause for panic attacks. Some medications may also have anxiety as a side effect. SYMPTOMS Some of the most common feelings are: Intense terror. Dizziness, feeling faint. Hot and cold flashes. Fear of going crazy. Feelings that nothing is real. Sweating. Shaking. Chest pain or a fast heartbeat (palpitations ). Smothering, choking sensations. Feelings of impending doom and that is near. Tingling of extremities, this may be from over-breathing. Altered reality (derealization ). Being detached from yourself (depersonalization ). Several symptoms can be present to make up anxiety or panic attacks. DIAGNOSIS The evaluation by your caregiver will depend on the type of symptoms you are experiencing. The diagnosis of anxiety or panic attack is made when no physical illness can be determined to be a cause of the symptoms. TREATMENT Treatment to prevent anxiety and panic attacks may include: Avoidance of circumstances that cause anxiety. Reassurance and relaxation. Regular exercise. Relaxation therapies, such as yoga. Psychotherapy with a psychiatrist or therapist. Avoidance of caffeine, alcohol and illegal drugs. Prescribed medication. SEEK IMMEDIATE MEDICAL CARE IF: You experience panic attack symptoms that are different than your usual symptoms. You have any worsening or concerning symptoms. Document Released: 05/18/2006 Document Revised: 08/09/2012 Document Reviewed: [facility] Patient Information 2014 [employer]. No follow up information was provided. Extracted from: Title: Office Visit Note Author: Kole Berry MD Date: 08/02/14 Assessment/Plan Anxiety Encouraged that his anxiety is improved significantly. Continue citalopram at 40 mg a day. He may try to back off on the alprazolam twice a day for the next couple weeks and then further he seems to be doing well. Follow-up in 3 months is recommended. Ordered: Office Visit Level 3 Est 37438 Chronic low back pain I refilled his tramadol today. I've asked her to take ibuprofen 800 mg 3 times a day over the next couple of weeks and supplement with the tramadol as needed. Encouraged him to take his muscle relaxant at bedtime. I encouraged him to do core strengthening exercises to help with his back pain on long-term basis. Follow-up in 3 months. Ordered: Office Visit Level 3 Est 20280 Orders: ibuprofen, 1 caps, Oral, q6hr, # 100 caps, 0 Refill(s), other reason ( Rx) traMADol, 1 tabs, Oral, q4hr, as needed for pain, [facility], # 50 tabs, 0 Refill (s), 1 tabs Oral q4hr
--- OUTSIDE RECORDS SUMMARY | 2016-10-28 00:09 | XMS REPORT | Referral Summary ---
Author Author [facility] Organization [facility] Address Unknown Phone Unavailable Care Team Providers Care Boiler Cleaner Name Role Phone Mary Beth Berry Primary Care Physician [phone] Encounter VC Date(s): 08/28/15 - 08/28/15 [facility], [address] [place] [address]- Discharge Disposition: 01-Home or Self Care Attending Physician: Matt Nagy MD Admitting Physician: Matt Nagy MD Vital Signs Most recent to 1 oldest [Reference Range]: Temperature Tympanic 36 degC [36.6-38.1 degC] *LOW* (08/28/15 2:25 PM) Peripheral Pulse 88 bpm Rate [60-100 bpm] (08/28/15 2:25 PM) Blood Pressure 116/68 mmHg [90-140/60-90 mmHg] (08/28/15 2:25 PM) Problem List Condition Effective Dates Status [...] Daily, # 15 tabs, 0 Refill(s), [facility] [id number], 0.5 tabs Oral Daily Start Date: 08/14/15 Status: Ordered cyclobenzaprine 10 mg oral tablet 10 mg 1 tabs, Oral, TID, as needed for spasm, # 60 tabs, 0 Refill(s) Start Date: 01/16/15 Status: Ordered gabapentin 300 mg oral capsule 300 mg 1 caps, Oral, TID, # 60 caps, 3 Refill(s), Pharmacy: [id number], 1 caps Oral TID Start Date: 07/02/15 Status: Ordered [place] 7.5 mg-325 mg oral tablet 1 tabs, [...] Procedures Procedure Date Related Diagnosis Body Site Simple repair of superficial wounds of scalp, 08/28/15 neck, axillae, external genitalia, trunk and/or extremities (including hands and feet); 2.5 cm or less Social History Social History Type Response Smoking Status Current every day smoker; Tobacco use per day: 1 Pack; Number of years: 12 Assessment and Plan Extracted from: Title: Ambulatory Patient Education Author: Matt Nagy MD Date: 08/27 Family Medicine Fingertip Injuries and Amputations Fingertip [...] wound daily or as directed. Only take [id number] or prescription medicines for pain, discomfort , [...] 08/09/2012 Document Reviewed: ExitCare Patient Information 2015 [employer] [facility]. No follow up information was provided. Extracted from: Title: finger laceration, headache Author: Matt Nagy MD Date: due to the injury to the finger Impression and Plan Diagnosis Laceration of middle finger ([id number] S61.218A, Working, Medical). Headache (OFY64-AL R51, Working, Medical). Plan: 1) The 1.8 cm laceration of the right distal third finger was prepped in the usual sterile fashion with Hibiclens, then Betadyne, then anesthetized with 1% Lidocaine with sodium bicarbonate local. 5-0 Prolene interrupted simple sutures were used for the closure. This was well tolerated. 2) Patient was advised to apply CHARLES and a sterile dressing for several days. He was also advised to keep it entirely clean and dry today and tomorrow (then may wash in clean water). 3) May work as tolerated otherwise. 4) Return for suture removal in 8-10 days and as needed. 5) No change to his routine meds made, which include several pain pills that he has available for PRN use. 6) The headache seems to be related to the stress of his acute finger injury, but does not cause neurologic deficit at this time.. Orders Orders (Selected) Outpatient Orders Ordered Office Visit Level 3 Est 45615: SIMP WND REPAIR 2.5CM/LESS 14582: Discontinued Office Visit Level 2 Est 04507: . Dx/Order Association Plan: Diagnosis: Headache Comment: Ordered: Office Visit Level 3 Est 20128; 08/28/15 17:19:00 CDT, 25 , Headache | Laceration of middle finger Discontinued: Office Visit Level 2 Est 10904; 08/28/15 16:27:00 CDT, 25, Headache | Laceration of middle finger Diagnosis: Laceration of middle finger Comment: Ordered: Office Visit Level 3 Est 13175; 08/28/15 17:19:00 CDT, 25 , Headache | Laceration of middle finger SIMP WND REPAIR 2.5CM/LESS 29861; 08/28/15 16:30: 00 CDT, 1, Laceration of middle finger Discontinued: Office Visit Level 2 Est 43114; 08/28/15 16:27:00 CDT, 25, Headache | Laceration of middle finger End of Orders ."
--- OUTSIDE RECORDS SUMMARY | 2016-10-28 00:09 | XMS REPORT | Referral Summary ---
Author Author [facility] Organization [facility] Address Unknown Phone Unavailable Care Team Providers Care Roll Mill Operator Name Role Phone Mary Beth Berry Primary Care Physician [phone] Encounter Date(s): 07/26/15 - 07/26/15 [facility] [address] [place] [address] Discharge Diagnosis: Postherpetic neuralgia Discharge Diagnosis: Anxiety Discharge Diagnosis: Chronic low back pain Discharge Disposition: 01-Home or Self Care Attending Physician: Kole Berry MD Admitting Physician: Kole Berry MD Vital Signs Most recent to 1 oldest [Reference Range]: Temperature Tympanic 36.4 degC [36.6-38.1 degC] *LOW* (07/26/15 9:21 AM) Peripheral Pulse 100 bpm Rate [60-100 bpm] (07/26/15 9:21 AM) Blood Pressure 116/62 mmHg [90-140/60-90 mmHg] (07/26/15 9:21 AM) Problem List Condition Effective Dates Status [...] TID, # 60 caps, 3 Refill(s), Pharmacy: [id number], 1 caps Oral TID Start Date: 07/02/15 Status: Ordered [place] 7.5 mg-325 mg oral tablet 1 tabs, Oral, BID, as needed for pain, # 10 tabs, 0 Refill(s) Start Date: 07/26/15 Status: Ordered [place] 7.5 mg-325 mg oral tablet tabs, Oral, [...] Visit Note Author: Kole Berry MD Date: 07/26/15 Assessment/Plan Anxiety, Generalized anxiety disorder I think it is reasonableto continue his alprazolam1 mg twice daily. He can have that filled here through his pain managementclinic. He'll visit with them on the and let us knowwhich they would prefer. I encouraged him to continue with family counseling as well. Ordered: Office Visit Level 3 Est 76840 Chronic low back pain, Low back pain I wrote a prescription for 10Norco 5 mg tablets today to be taken 2 tablets twice dailywhich is back to his normal regimento get him through until he sees his stage settings painter on the . Ordered: Office Visit Level 3 Est 26543 Other postherpetic nervous system involvement, Postherpetic neuralgia We discussed his postherpetic neuralgia. We talked about increasing gabapentin that he feels like he can manageat the current level. The pain worsenshe'll let us know and will give instructions to increase gabapentin as directed. Ordered: Office Visit Level 3 Est 10114 Orders: HYDROcodone-acetaminophen, 1 tabs, Oral, BID, as needed for pain, # 10 tabs, 0 Refill(s)
--- OUTSIDE RECORDS SUMMARY | 2016-10-28 00:09 | XMS REPORT | Continuity of Care Document ---
Author Author [facility] Organization [facility] Address Unknown Phone Unavailable Support Name Relationship Address Phone BERT RADFORD MD Caregiver [facility] [address] [place] [address] Unavailable CHRISTINA OLSEN MD Caregiver [address] [place] [address] [phone] BRITTNEY SAWYER Next Of Kin [address] [place] [address] Insurance Providers Payer Name Policy Number Subscriber Name Relationship Self Pay Lakhwinder Sawyer 18 Self Problems Medical Problems Problem Onset Date Status Anxiety Unknown Active Atypical chest pain Unknown Active Self mutilating behavior Unknown Active Accidental overdose Unknown Active Self mutilating behavior Unknown Active Viral syndrome Unknown Active Anxiety attack Unknown Active Medications Medication Dose Route Sig Days/Qty Instructions Order Date Discontinued Date Status [No Regular Meds] 05/17/08 09/04/13 Discontinued Gabapentin 200 Mg PO TWICE A DAY 09/21/12 08/31/13 Discontinued Amitriptyline Hcl 10 Mg PO TWICE A DAY 09/21/12 08/31/13 Discontinued Alprazolam 1 Mg PO 05/29/14 Active Tramadol HCl 50 Mg PO 05/29/14 Active [Voltaren] 05/29/14 Active Social History Social History Problem Response Recorded Date/Time Chewing Tobacco Status No 09/04/2013 12:50am Hx Substance Use No 05/29/2014 12:45am Hx Alcohol Use Y STATES ABOUT 3 TIMES A WEEK-BEER 05/29/2014 12:45am Tobacco Usage smoke 08/31/2013 4:03am Query Response Start Date Stop Date Smoking Status Current every day smoker Hospital Discharge Instructions No hospital discharge instructions. Plan of Care No plan of care. Functional Status Query Response Date Recorded Physical Hygiene Self May 29, 2014 12:45am Disabilities None May 29, 2014 12:45am Devices Used Glasses May 29, 2014 12:45am Dressing Self May 29, 2014 12:45am Ambulation Self May 29, 2014 12:45am Diet Self May 29, 2014 12:45am Mental Status Alert Oriented May 29, 2014 12:45am Disabilities None May 29, 2014 12:45am Devices Used Glasses May 29, 2014 12:45am Physical Hygiene Self May 29, 2014 12:45am Dressing Self May 29, 2014 12:45am Ambulation Self May 29, 2014 12:45am Diet Self May 29, 2014 12:45am Allergies, Adverse Reactions, Alerts Allergen Type Severity Reaction Status Last Updated Latex Allergy Severe Active 05/29/14 Immunizations Name Given Type Hx Influenza Vaccination No Historical Hx Pneumococcal Vaccination No Historical Hx Tetanus, Diptheria, Pertussis Yes Historical Hx Influenza Vaccination No Historical Hx Tetanus, Diptheria, Pertussis Yes Historical Vital Signs Acute Vital Signs Vital Response Date/Time Temperature (Fahrenheit) 97.5 deg F (96.8 - 99.1) Temperature (Calculated Celsius) 36.52491 degrees C (36.0 - 37.3) Pulse Rate (adult) 86 bpm (60 - 100) Respiratory Rate 28 breaths/min (10 - 20) O2 Sat by Pulse Oximetry 95 % (90 - 100) Blood Pressure 108/68 mm Hg Height 5 ft 6 in Weight 156 lb Body Mass Index 25.0 kg/m^2 Results Test Source Date Result Interp. Ref. Range Comments Acetaminophen Level September 04, 2013 1:15am < 10 UG/ML L 10-30 TOXIC <4 HR POST INGESTION: >150 MG/L;TOXIC <12 HR POST INGESTION: >50 MG/L Alanine Aminotransferase (ALT/SGPT) September 04, 2013 1:15am 27 U/L N 21- 72 Albumin September 04, 2013 1:15am 4.5 G/DL N 3.5-5.0 Albumin/Globulin Ratio September 04, 2013 1:15am 1.6 RATIO N 1.1-2.2 Alcohol, Quantitative September 04, 2013 1:15am <10 MG/DL - Alkaline Phosphatase September 04, 2013 1:15am 117 U/L N 38-126 Anion Gap September 04, 2013 1:15am 13 MEQ/L N 5-15 Aspartate Amino Transf (AST/SGOT) September 04, 2013 1:15am 32 U/L N 17-59 BUN/Creatinine Ratio September 04, 2013 1:15am 20 RATIO N 6-26 Band Neutrophils # March 10, 2012 3:00pm 0.6 T/MM3 - Band Neutrophils % March 10, 2012 3:00pm 5.0 % N 0-6 Basophils # (Auto) September 04, 2013 1:15am 0.0 T/MM3 N 0-0.2 Basophils (%) (Auto) September 04, 2013 1:15am 0.3 % N 0-2 Blood Urea Nitrogen September 04, 2013 1:15am 18.0 MG/DL N 9-20 Calcium Level September 04, 2013 1:15am 9.9 MG/DL N 8.4-10.2 Calculated Osmolality September 04, 2013 1:15am 277 MOSM/KG N 261-280 Carbon Dioxide Level September 04, 2013 1:15am 27 MEQ/L N 22-30 Chloride Level September 04, 2013 1:15am 103 MEQ/L N 98-107 Creatinine September 04, 2013 1:15am 0.9 MG/DL N 0.8-1.5 Eosinophils # (Auto) September 04, 2013 1:15am 0.2 T/MM3 N 0-0.5 Eosinophils # (Manual) March 10, 2012 3:00pm 0.1 T/MM3 N 0-0.5 Eosinophils % (Manual) March 10, 2012 3:00pm 1.0 % N 0-4 Eosinophils (%) (Auto) September 04, 2013 1:15am 2.2 % N 0-4 Folate July 21, 2011 4:07pm 5.0 NG/ML N 2.76-20 NORMAL ADULT RANGE : 2.76->20 ng/mL Globulin September 04, 2013 1:15am 2.8 G/DL N 2.4-3.6 Glucose Level September 04, 2013 1:15am 95 MG/DL N 75-110 Hematocrit September 04, 2013 1:15am 48.3 % N 41-53 Hemoglobin September 04, 2013 1:15am 16.5 GM/DL N 13.5-17.5 Hepatitis A IgM Antibody July 21, 2011 4:07pm Negative - Hepatitis B Core IgM Antibody July 21, 2011 4:07pm Negative - Hepatitis B Surface Antigen July 21, 2011 4:07pm Negative - Hepatitis C Antibody July 21, 2011 4:07pm Negative - Lymphocytes # (Auto) September 04, 2013 1:15am 3.1 T/MM3 N 1-4.8 Lymphocytes # (Manual) March 10, 2012 3:00pm 2.6 T/MM3 N 1-4.8 Lymphocytes % (Manual) March 10, 2012 3:00pm 22.0 % L 23-45 Lymphocytes (%) (Auto) September 04, 2013 1:15am 31.2 % N 23-45 Mean Corpuscular Hemoglobin September 04, 2013 1:15am 31.8 UUG N 26-34 Mean Corpuscular Hemoglobin Concent September 04, 2013 1:15am 34.2 GM/DL N 31-37 Mean Corpuscular Volume September 04, 2013 1:15am 93.1 UM3 N 80-100 Mean Platelet Volume September 04, 2013 1:15am 9.2 UM3 L 9.4-12.4 Monocytes # (Auto) September 04, 2013 1:15am 0.9 T/MM3 H 0-0.8 Monocytes # (Manual) March 10, 2012 3:00pm 0.7 T/MM3 N 0-0.8 Monocytes % (Manual) March 10, 2012 3:00pm 6.0 % N 0-9.0 Monocytes (%) (Auto) September 04, 2013 1:15am 8.6 % N 0-9.0 Neutrophils # (Auto) September 04, 2013 1:15am 5.7 T/MM3 N 1.8-7.7 Neutrophils # (Manual) March 10, 2012 3:00pm 7.3 T/MM3 N 1.8-7.7 Neutrophils % (Manual) March 10, 2012 3:00pm 61.0 % N 33-66 Neutrophils (%) (Auto) September 04, 2013 1:15am 57.6 % N 33-66 Platelet Count September 04, 2013 1:15am 227 T/MM3 N 130-400 Potassium Level September 04, 2013 1:15am 3.9 MEQ/L N 3.6-5 RDW Standard Deviation September 04, 2013 1:15am 41.8 FL N 36.9-50.2 Rapid Plasma Reagin July 21, 2011 4:07pm Nonreactive - Red Blood Count September 04, 2013 1:15am 5.19 M/MM3 N 4.50-5.90 Salicylates Level September 04, 2013 1:15am < 1.0 MG/DL L 2-20 Sodium Level September 04, 2013 1:15am 143 MEQ/L N 134-144 Thyroid Stimulating Hormone (TSH) July 21, 2011 4:07pm 1.32 MIU/L N 0.47-4.68 Total Bilirubin September 04, 2013 1:15am 0.40 MG/DL N 0.20-1.30 Total Protein September 04, 2013 1:15am 7.3 G/DL N 6.3-8.2 Troponin I August 31, 2013 3:55am < 0.012 ng/ml 0-0.12 Urine Bilirubin September 04, 2013 2:15am Negative - Has specimen been collected/obtained? Y Urine Blood September 04, 2013 2:15am Negative - Has specimen been collected/obtained? Y Urine Collection Type September 04, 2013 2:15am Voided-not cc-midstr - Has specimen been collected/obtained? Y Urine Color September 04, 2013 2:15am Yellow - Has specimen been collected/obtained? Y Urine Glucose (UA) September 04, 2013 2:15am Negative - Has specimen been collected/obtained? Y Urine Ketones September 04, 2013 2:15am Trace H - Has specimen been collected/obtained? Y Urine Leukocyte Esterase September 04, 2013 2:15am Negative - Has specimen been collected/obtained? Y Urine Nitrite September 04, 2013 2:15am Negative - Has specimen been collected/obtained? Y Urine Protein September 04, 2013 2:15am Negative - Has specimen been collected/obtained? Y Urine Specific [place] September 04, 2013 2:15am >=1.030 H - Has specimen been collected/obtained? Y Urine Turbidity September 04, 2013 2:15am Clear - Has specimen been collected/obtained? Y Urine Urobilinogen September 04, 2013 2:15am 0.2 EU/DL - Has specimen been collected/obtained? Y Urine pH September 04, 2013 2:15am 6.0 - Has specimen been collected/ obtained? Y Vitamin B12 Level July 21, 2011 4:07pm 628 PG/ML N 239-931 White Blood Count September 04, 2013 1:15am 9.8 T/MM3 N 4.5-11.0 Chemistry Specimen Hemolysis September 04, 2013 1:15am 21 N 0-25 0-25: No Hemolysis.26-70: Slight Hemolysis - can falsely elevate K and Urine Protein. 71-285: Moderate Hemolysis - can falsely elevate K, Troponin I, CA 19-9, PTH, CSF GLucose, and Urine Protein, and can falsely decrease Phenytoin. 286-999: Gross Hemolysis - can falsely elevate K, Troponin I, CA 19-9, PTH, CSF Glucose, and Urine Protine, and can falsely decrease Phenytoin. Recommend specimen recollection. Urinalysis Comment September 04, 2013 2:15am Microscopic not ind. - Has specimen been collected/obtained? Y Lab Scanned Report September 07, 2013 3:14pm REFERENCE LAB [id number] - HIV (1&2) Antibody Rapid July 21, 2011 4:07pm Negative - Turbidity September 04, 2013 1:15am 20 N 0-20 Reactive Lymphocytes % March 10, 2012 3:00pm 5.0 % H 0-0 Glomerular Filtration Rate Calc September 04, 2013 1:15am 99 - Reactive Lymphocytes # March 10, 2012 3:00pm 0.6 T/MM3 H 0-0 Immature Granulocyte # (Auto) September 04, 2013 1:15am 0.01 T/MM3 N 0.00- 0.03 Immature Granulocyte % (Auto) September 04, 2013 1:15am 0.1 % N 0.0-0.5 Icterus Index September 04, 2013 1:15am < 2 0-7 Urine Microscopic Not Indicated May 07, 2011 12:10am Not indicated - Has specimen been collected/obtained? Y Procedures No known history of procedures. Encounters Encounter Location Date/Time Registered Emergency Room [facility] 05/29/14 12:09am Recent Diagnosis
--- OUTSIDE RECORDS SUMMARY | 2016-10-28 00:09 | XMS REPORT | Referral Summary ---
Author Author [facility] Organization [facility] Address Unknown Phone Unavailable Care Team Providers Care Development Educator Name Role Phone Mary Beth Berry Primary Care Physician [phone] Encounter Date(s): 12/17/15 - 12/17/15 [facility] [address] [place] [address] Discharge Diagnosis: Bilateral lower abdominal pain Discharge Diagnosis: Chronic low back pain Discharge Diagnosis: Anxiety Discharge Disposition: 01-Home or Self Care Attending Physician: Maureen Rice APRN Admitting Physician: Maureen Rice APRN Vital Signs Most recent to 1 oldest [Reference Range]: Temperature Tympanic 36.5 degC [36.6-38.1 degC] *LOW* (12/17/15 8:37 AM) Peripheral Pulse 84 bpm Rate [60-100 bpm] (12/17/15 8:37 AM) Blood Pressure 98/62 mmHg [90-140/60-90 mmHg] (12/17/15 8:37 AM) Problem List Condition Effective Dates Status [...] 0 Refill(s) Start Date: 01/16/15 Status: Ordered [place] 7.5 mg-325 mg oral tablet 1 tabs, [...] and Plan Extracted from: Title: Office Visit Note-abd pain Author: Maureen Rice DELI BAKERY CLERK Date: Assessment/Plan 1.Bilateral lower abdominal pain Suspect muscular in nature. Discussed stretching exercises for the abdomen. He tends toward constipation recommend stool softener daily. Encourage him to eat a diet high in protein. Avoidsoda. Avoid alcohol. Offered physical therapy. Patient denies need. Unable to afford at this time as he has no insurance. 2.Anxiety Offered therapy. Patient denies need. 3.Chronic low back pain Continue to follow withpain management. I will not make any changes today.
--- OUTSIDE RECORDS SUMMARY | 2016-10-28 00:09 | XMS REPORT | Continuity of Care Document ---
Author Author [facility] Organization [facility] Address Unknown Phone Unavailable Allergies Active Description Code Type Severity Reaction Onset Reported/Identified Relationship to Patient Clinical Status Yes Latex Other N/A N/A 12/07/2013 Yes No Known Medication Allergies NKMA N/A N/A 12/07/2013 Medications Problems Procedures Results Test Result Range Urinalysis with reflex microscopic - 03/03/16 16:15 Appearance Cloudy NA Bilirubin Negative NA Negative Blood Negative NA Negative Color Yellow NA Glucose, Urine Negative NA Negative Ketones Negative NA Negative Leukocyte Esterase Negative NA Negative Nitrites Negative NA Negative pH 7.5 NA 5.0-8.0 Protein Negative NA Negative Specific [place] 1.020 NA 1.003-1.030 UA Collection type Clean Catch NA Urobilinogen 0.2 mg/dL <=1.0 Benzodiazepine Confirmation - 09/15/16 09:56 a-Hydroxyalprazolam Not Detected ng/mL a-Hydroxyalprazolam Pain Match INCONSISTENT NA Lorazepam Not Detected ng/mL Nordiazepam Not Detected ng/mL Oxazepam Not Detected ng/mL Temazepam Not Detected ng/mL Oxycodone Confirmation, Urine - 09/15/16 09:56 Oxycodone 2498 ng/mL Oxycodone Pain Match INCONSISTENT NA Oxymorphone 3441 ng/mL Oxymorphone Pain Match INCONSISTENT NA Oxycodone Confirmation, Urine - 09/24/16 09:35 Oxycodone Not Detected ng/mL Oxymorphone 273 ng/mL Oxymorphone Pain Match INCONSISTENT NA Encounters ACCT No. Visit Date/Time Discharge Status Pt. Type Provider Facility Loc./Unit Complaint [id number] 08/31/2013 14:18:00 08/31/2013 23 :59:59 CLS Outpatient
--- OUTSIDE RECORDS SUMMARY | 2016-10-28 00:09 | XMS REPORT | Continuity of Care Document ---
Author Author [facility] Organization [facility] Address Unknown Phone Unavailable Support Name Relationship Address Phone SAY MITCHELL MD Caregiver [address] [place] [address] [place] [address] BERT RADFORD MD Caregiver [facility] [address] [place] [address] Unavailable AGUS MARIE Caregiver [address] [place], [place] [phone] CHRISTINA OLSEN MD Caregiver [address] [place] [address] [phone] BRITTNEY SAWYER Next Of Kin [address] [place] [address] Insurance Providers Payer Name Policy Number Subscriber Name Relationship Self Pay Lakhwinder Sawyer 18 Self Advance Directives Directive Response Recorded Date/Time Advanced Directives Type None 06/11/14 6:16pm Ordered Resuscitation Status Full Code 06/11/14 5:37pm Resuscitation Documents on File No 06/11/14 6:43pm Chief Complaint and Reason for Visit Chief Complaint ACUTE BRONCHITIS AND RUN OF AYSTOLE Reason for Visit Asystole Vasovagal syncope Bronchitis Fever Scoliosis Tobacco dependency Fever Hemoptysis Asystole Cough Problems Medical Problems Problem Onset Date Status Anxiety Unknown Active Atypical chest pain Unknown Active Self mutilating behavior Unknown Active Accidental overdose Unknown Active Self mutilating behavior Unknown Active Viral syndrome Unknown Active Anxiety attack Unknown Active Asystole Unknown Resolved Vasovagal syncope Unknown Resolved Bronchitis Unknown Active Fever Unknown Active Scoliosis Unknown Active Tobacco dependency Unknown Active Fever Unknown Active Hemoptysis Unknown Active Asystole Unknown Active Cough Unknown Active Medications Medication Dose Route Sig Days/Qty Instructions Order Date Discontinued Date Status [No Regular Meds] 05/17/08 09/04/13 Discontinued Gabapentin 200 Mg PO TWICE A DAY 09/21/12 08/31/13 Discontinued Amitriptyline Hcl 10 Mg PO TWICE A DAY 09/21/12 08/31/13 Discontinued Alprazolam 1 Mg PO THREE TIMES A DAY 05/29/14 Active Tramadol HCl 50 Mg PO NEEDED 05/29/14 Active [Anti Inflammatory ] Unknown Dose 06/11/14 Active Cyclobenzaprine HCl 10 Mg PO THREE TIMES A DAY PRN MUSCLE PAIN 30 Qty 06/12/14 Active Hydrocodone/Acetaminophen 1 Tab PO Q4H PRN PAIN 30 Qty 06/12/14 Active Fluticasone/Salmeterol 1 Puff ORAL INH RESP.TX TWICE A DAY 14 Days 05/15 Active Azithromycin 1 Tab PO DAILY 5 Days TAKE TWO ON DAY ONE, 06/12/14 Active Social History Social History Problem Response Recorded Date/Time Chewing Tobacco Status No 09/04/2013 12:50am Hx Substance Use No 06/11/2014 3:50pm Hx Alcohol Use N PT DENIES 06/11/2014 3:50pm Has the pt used tobacco in the last 12 months Yes 06/11/2014 6:30pm Tobacco Usage smoke 06/12/2014 10:32am Query Response Start Date Stop Date Smoking Status Current every day smoker Hospital Discharge Instructions Instructions: Care Instructions: Reason for Hospitalization: bronchitis, short run asystole after vasovagal I was in the hospital because (patient own words): PT STATES "FEVER, FLU, SICK" Discharge Diet: as tolerated Discharge Activity: as tolerated Follow Up Appointments: Have a holter monitor placed this thursday at Dr García's clinic. Patient Instructions: should your symptoms return you could contact Dr García or your PCP through the clinic or return to the ED for emergent evaluation Condition at time of discharge: Good FOLLOW UP APPOINTMENT WITH IS ON 06-19-14 AT 8:30AM. PLEASE CHECK IN AT 8:00 TO FILL OUT PAPER WORK--SWV to provide transportation Condition at time of discharge: Good 1. Call your surgeon if you are having problems relating to your surgery at [phone]. 2. Problems such as: Temp above 101.5 degrees You develop redness, excessive swelling of the incision, increasing pain or excessive foul smelling drainage. 3. If the office is closed, call [facility] at [phone] and have your Surgeon paged. Condition at time of discharge: Fair Plan of Care Discharge Date 06/12/14 6:58pm Disposition 01 DISCHARGED HOME, SELF-CARE Instructions/Education Provided Smoking Cessation for Older Adults: It's Not Too Late! DI for Acute Bronchitis Prescriptions See Medications Section Functional Status Query Response Date Recorded Physical Hygiene Self June 11, 2014 3:50pm Disabilities Visual June 11, 2014 6:16pm Devices Used Glasses June 11, 2014 6:16pm Dressing Self June 11, 2014 3:50pm Ambulation Self June 11, 2014 3:50pm Diet Self June 11, 2014 3:50pm Mental Status Alert June 12, 2014 12:28pm Disabilities Visual June 11, 2014 6:16pm Devices Used Glasses June 11, 2014 6:16pm Physical Hygiene Self June 11, 2014 3:50pm Dressing Self June 11, 2014 3:50pm Ambulation Self June 11, 2014 3:50pm Diet Self June 11, 2014 3:50pm Allergies, Adverse Reactions, Alerts Allergen Type Severity Reaction Status Last Updated Latex Allergy Severe Active 06/11/14 Immunizations Name Given Type Hx Influenza Vaccination N DID NOT HAVE Historical Hx Pneumococcal Vaccination No Historical Hx Tetanus, Diptheria, Pertussis Yes Historical Hx Influenza Vaccination N DID NOT HAVE Historical Hx Tetanus, Diptheria, Pertussis Yes Historical Vital Signs Acute Vital Signs Vital Response Date/Time Temperature (Fahrenheit) 98.7 deg F (96.8 - 99.1) Pulse Rate (adult) 82 bpm (60 - 100) Respiratory Rate 16 breaths/min (10 - 20) O2 Sat by Pulse Oximetry 94 % (90 - 100) Blood Pressure 127/69 mm Hg Height (Feet) 5 feet Height (Inches) 7.00 inches Height 5 ft 7 in Weight 155 lb Body Mass Index 24.0 kg/m^2 Results Test Source Date Result Interp. Ref. Range Comments Acetaminophen Level September 04, 2013 1:15am < 10 UG/ML L 10-30 TOXIC <4 HR POST INGESTION: >150 MG/L;TOXIC <12 HR POST INGESTION: >50 MG/L Alanine Aminotransferase (ALT/SGPT) June 11, 2014 4:15pm 27 U/L N 21- 72 Albumin June 11, 2014 4:15pm 4.5 G/DL N 3.5-5.0 Albumin/Globulin Ratio June 11, 2014 4:15pm 1.5 RATIO N 1.1-2.2 Alcohol, Quantitative September 04, 2013 1:15am <10 MG/DL - Alkaline Phosphatase June 11, 2014 4:15pm 83 U/L N 38-126 Anion Gap June 12, 2014 4:13am 9 MEQ/L N 5-15 Aspartate Amino Transf (AST/SGOT) June 11, 2014 4:15pm 29 U/L N 17- 59 BUN/Creatinine Ratio June 12, 2014 4:13am 18 RATIO N 6-26 Band Neutrophils # March 10, 2012 3:00pm 0.6 T/MM3 - Band Neutrophils % March 10, 2012 3:00pm 5.0 % N 0-6 Basophils # (Auto) June 12, 2014 4:13am 0.0 T/MM3 N 0-0.2 Basophils (%) (Auto) June 12, 2014 4:13am 0.2 % N 0-2 Blood Urea Nitrogen June 12, 2014 4:13am 18.0 MG/DL N 9-20 Calcium Level June 12, 2014 4:13am 8.5 MG/DL DN 8.4-10.2 Calculated Osmolality June 12, 2014 4:13am 274 MOSM/KG N 261-280 Carbon Dioxide Level June 12, 2014 4:13am 30 MEQ/L N 22-30 Chemistry Specimen Hemolysis June 12, 2014 4:13am < 15 0-25 0-25: No Hemolysis.26-70: Slight Hemolysis - can falsely elevate K and Urine Protein. 71-285: Moderate Hemolysis - can falsely elevate K, Troponin I, CA 19-9, PTH, CSF GLucose, and Urine Protein, and can falsely decrease Phenytoin. 286-999: Gross Hemolysis - can falsely elevate K, Troponin I, CA 19-9, PTH, CSF Glucose, and Urine Protine, and can falsely decrease Phenytoin. Recommend specimen recollection. Chloride Level June 12, 2014 4:13am 103 MEQ/L N 98-107 Creatinine June 12, 2014 4:13am 1.0 MG/DL N 0.8-1.5 Eosinophils # (Auto) June 12, 2014 4:13am 0.0 T/MM3 N 0-0.5 Eosinophils # (Manual) March 10, 2012 3:00pm 0.1 T/MM3 N 0-0.5 Eosinophils % (Manual) March 10, 2012 3:00pm 1.0 % N 0-4 Eosinophils (%) (Auto) June 12, 2014 4:13am 0.7 % N 0-4 Folate July 21, 2011 4:07pm 5.0 NG/ML N 2.76-20 NORMAL ADULT RANGE : 2.76->20 ng/mL Globulin June 11, 2014 4:15pm 3.1 G/DL N 2.4-3.6 Glomerular Filtration Rate Calc June 12, 2014 4:13am 87 - Glucose Level June 12, 2014 4:13am 82 MG/DL N 75-110 HIV (1&2) Antibody Rapid July 21, 2011 4:07pm Negative - Hematocrit June 12, 2014 4:13am 43.2 % N 41-53 Hemoglobin June 12, 2014 4:13am 14.3 GM/DL N 13.5-17.5 Hepatitis A IgM Antibody July 21, 2011 4:07pm Negative - Hepatitis B Core IgM Antibody July 21, 2011 4:07pm Negative - Hepatitis B Surface Antigen July 21, 2011 4:07pm Negative - Hepatitis C Antibody July 21, 2011 4:07pm Negative - Icterus Index June 12, 2014 4:13am < 2 0-7 Immature Granulocyte # (Auto) June 12, 2014 4:13am 0.00 T/MM3 N 0.00- 0.03 Immature Granulocyte % (Auto) June 12, 2014 4:13am 0.0 % N 0.0-0.5 Influenza Type A Antigen June 11, 2014 4:15pm Negative - Negative for Flu A protein antigen. Assay sensitivity is90%. Influenza Type B Antigen June 11, 2014 4:15pm Negative - Negative for Flu B protein antigen. Assay sensitivity is90%. Lab Scanned Report September 07, 2013 3:14pm REFERENCE LAB [id number] - Lymphocytes # (Auto) June 12, 2014 4:13am 1.3 T/MM3 N 1-4.8 Lymphocytes # (Manual) March 10, 2012 3:00pm 2.6 T/MM3 N 1-4.8 Lymphocytes % (Manual) March 10, 2012 3:00pm 22.0 % L 23-45 Lymphocytes (%) (Auto) June 12, 2014 4:13am 30.1 % N 23-45 Magnesium Level June 12, 2014 4:13am 2.1 MG/DL N 1.6-2.3 Mean Corpuscular Hemoglobin June 12, 2014 4:13am 31.4 UUG N 26-34 Mean Corpuscular Hemoglobin Concent June 12, 2014 4:13am 33.1 GM/DL N 31-37 Mean Corpuscular Volume June 12, 2014 4:13am 94.7 UM3 N 80-100 Mean Platelet Volume June 12, 2014 4:13am 9.7 UM3 N 9.4-12.4 Monocytes # (Auto) June 12, 2014 4:13am 0.5 T/MM3 N 0-0.8 Monocytes # (Manual) March 10, 2012 3:00pm 0.7 T/MM3 N 0-0.8 Monocytes % (Manual) March 10, 2012 3:00pm 6.0 % N 0-9.0 Monocytes (%) (Auto) June 12, 2014 4:13am 12.3 % H 0-9.0 Neutrophils # (Auto) June 12, 2014 4:13am 2.4 T/MM3 N 1.8-7.7 Neutrophils # (Manual) March 10, 2012 3:00pm 7.3 T/MM3 N 1.8-7.7 Neutrophils % (Manual) March 10, 2012 3:00pm 61.0 % N 33-66 Neutrophils (%) (Auto) June 12, 2014 4:13am 56.7 % N 33-66 Platelet Count June 12, 2014 4:13am 127 T/MM3 L 130-400 Potassium Level June 12, 2014 4:13am 4.3 MEQ/L N 3.6-5 Procalcitonin June 11, 2014 4:39pm 0.06 NG/ML - PCT </=0.5 ng/mL - sepsis not likely;PCT >0.5 and </=2 ng/mL - sepsis possible; PCT >2 ng/mL - sepsis likely; PCT >/=10 ng/mL - systemic inflammatory response - sepsis or septic shock highly indicated. RDW Standard Deviation June 12, 2014 4:13am 42.6 FL N 36.9-50.2 Rapid Plasma Reagin July 21, 2011 4:07pm Nonreactive - Reactive Lymphocytes # March 10, 2012 3:00pm 0.6 T/MM3 H 0-0 Reactive Lymphocytes % March 10, 2012 3:00pm 5.0 % H 0-0 Red Blood Count June 12, 2014 4:13am 4.56 M/MM3 N 4.50-5.90 Salicylates Level September 04, 2013 1:15am < 1.0 MG/DL L 2-20 Sodium Level June 12, 2014 4:13am 142 MEQ/L N 134-144 Thyroid Stimulating Hormone (TSH) June 12, 2014 4:13am 2.26 MIU/L N 0.47-4.68 Total Bilirubin June 11, 2014 4:15pm 0.50 MG/DL N 0.20-1.30 Total Protein June 11, 2014 4:15pm 7.6 G/DL N 6.3-8.2 Troponin I June 12, 2014 4:13am < 0.012 ng/ml 0-0.12 Turbidity June 12, 2014 4:13am < 20 0-20 Urinalysis Comment September 04, 2013 2:15am Microscopic not ind. - Has specimen been collected/obtained? Y Urine Bilirubin September 04, 2013 2:15am Negative [...] - Has specimen been collected/obtained? Y Urine Microscopic Not Indicated May 07, 2011 12:10am Not indicated - Has specimen been collected/obtained? Y Urine Nitrite September 04, 2013 2:15am Negative - Has specimen been collected/obtained? Y Urine Protein September 04, 2013 2:15am Negative - Has specimen been collected/obtained? Y Urine Specific [place] September 04, 2013 2:15am >=1.030 H - Has specimen been collected/obtained? Y Urine Turbidity September 04, 2013 2:15am Clear - Has specimen been collected/obtained? Y Urine Urobilinogen September 04, 2013 2:15am 0.2 EU/DL - Has specimen been collected/obtained? Y Urine pH September 04, 2013 2:15am 6.0 - Has specimen been collected/ obtained? Y Venous Blood Lactate June 11, 2014 4:39pm 1.0 MMOL/L N 0.6-2.2 Vitamin B12 Level July 21, 2011 4:07pm 628 PG/ML N 239-931 White Blood Count June 12, 2014 4:13am 4.2 T/MM3 L 4.5-11.0 Blood Culture Peripheral Blood June 11, 2014 4:40pm NO GROWTH AFTER 24 HOURS Name: LAKHWINDER SAWYER Unit #: [id number] : 1985 Sex: M DISCHARGE SUMMARY Admit Date: 06/11/14 Report #: [id number] General Date Date DATE: 06/12/14 TIME: 17:34 Attending Physician Say Mitchell MD Admitting Physician Say Mitchell MD Consulting Physician Lenny García MD Admitting Diagnosis (1) Asystole Status: Resolved 2) Vasovagal syncope Status: Resolved (3) Bronchitis Status: Acute (4) Fever Status: Acute (5) Anxiety Status: Acute (6) Scoliosis Status: Chronic (7) Tobacco dependency Status: Chronic Discharge Diagnosis (1) Asystole Status: Resolved Assessment & Plan: Related to Vasovagal response it appears. Resolved. No further episodes. Appears to be related to Vasovagal response for now. Monitor. Plan for further outpatient evaluation with a Holter monitor and stress test. Echocardiogram pending. Serial cardiac enzymes are negative. UDS recommended. (2) Vasovagal syncope Status: Resolved Assessment & Plan: Resolved. Further work-up outpatient as above. (3) Bronchitis Status: Acute (4) Fever Status: Acute (5) Anxiety Status: Acute (6) Scoliosis Status: Chronic (7) Tobacco dependency Status: Chronic Procedures code blue Laboratory Laboratory Laboratory Tests Test 06/12/14 06/12/14 06/12/14 04:13 13:26 15:02 White Blood Count 4.2 T/MM3 Red Blood Count 4.56 M/MM3 Hemoglobin 14.3 GM/DL Hematocrit 43.2 % Mean Corpuscular Volume 94.7 UM3 Mean Corpuscular Hemoglobin 31.4 UUG Mean Corpuscular Hemoglobin 33.1 GM/DL Concent RDW Standard Deviation 42.6 FL Platelet Count 127 T/MM3 Mean Platelet Volume 9.7 UM3 Immature Granulocyte % (Auto) 0.0 % Neutrophils (%) (Auto) 56.7 % Lymphocytes (%) (Auto) 30.1 % Monocytes (%) (Auto) 12.3 % Eosinophils (%) (Auto) 0.7 % Basophils (%) (Auto) 0.2 % Immature Granulocyte # (Auto) 0.00 T/MM3 Neutrophils # (Auto) 2.4 T/MM3 Lymphocytes # (Auto) 1.3 T/MM3 Monocytes # (Auto) 0.5 T/MM3 Eosinophils # (Auto) 0.0 T/MM3 Basophils # (Auto) 0.0 T/MM3 Turbidity < 20 Sodium Level 142 MEQ/L Potassium Level 4.3 MEQ/L Chloride Level 103 MEQ/L Carbon Dioxide Level 30 MEQ/L Anion Gap 9 MEQ/L Blood Urea Nitrogen 18.0 MG/DL Creatinine 1.0 MG/DL Glomerular Filtration Rate 87 Calc BUN/Creatinine Ratio 18 RATIO Glucose Level 82 MG/DL Calculated Osmolality 274 MOSM/KG Calcium Level 8.5 MG/DL Magnesium Level 2.1 MG/DL Icterus Index < 2 Troponin I < 0.012 ng/ml Thyroid Stimulating Hormone 2.26 MIU/L (TSH) Chemistry Specimen Hemolysis < 15 Urine Opiates Screen Positive NG/ML Urine Methadone Screen Negative NG/ML Urine Acetaminophen Screen Positive NG/ML Urine Barbiturates Screen Negative NG/ML Urine Tricyclic Negative NG/ML Antidepressants Urine Phencyclidine Screen Negative NG/ML Urine Amphetamines Screen Negative NG/ML Urine Methamphetamines Screen Negative NG/ML Urine Benzodiazepines Screen Negative NG/ML Urine Cocaine Screen Negative NG/ML Urine Cannabinoids Screen Positive NG/ML Urine Drug Screen Confirmation Sent out Microbiology Microbiology Date/Time Procedure Status Source Growth 06/11/14 16:39 Blood Culture - Preliminary Resulted Peripheral Blood NO GROWTH AFTER 24 HOURS 06/11/14 16:40 Blood Culture - Preliminary Resulted Peripheral Blood NO GROWTH AFTER 24 HOURS History of Present Illness This is a 29-year-old male patient with a history of depression and anxiety that presented to the emergency room on the date of admission complaining of fever, chills, "not feeling well", cough, congestion and hemoptysis for the last 2 days. The patient states his highest fever was up to 105.2 at home. In the ER, the patient had an IV started and approximately 1 minute later, had a syncopal episode. According to ER staff, the patient prior to becoming unresponsive stated that he felt weird. The nursing staff looked at the monitor, and the patient was in asystole. Chest compressions were initiated, but within a few seconds, the patient became responsive and woke up, pushing them off his chest. Prior to this happening, the patient stated that he had only had chest pain with cough. Due to this event it was felt that he warranted observation and he was admitted for this purpose Hospital Course 06/11 The patient was admitted to outpatient observation status. Heart rhythm was monitored on telemetry. Cardiology was consulted and an echocardiogram was ordered. Troponins were trended, negative x3. He was started on Rocephin and azithromycin, and nebulized treatments were provided. He was started on IV fluids at 125 mL per hour. He is encouraged on tobacco cessation. 06/12 Cardiology evaluated the patient. Echocardiogram was done. Complaint of chest pain, likely related to chest compressions--increased narcotic pain medicine. Continued antibiotics and breathing treatments. Dr García did see the pt and felt that the event was vasovagal in origin and that he was safe for discharge with further work-up (Holter Monitor) in the outpt setting. Pt was discharged home with instructions to f/u at Dr García's office on Thursday for placement of the monitor. He was encouraged to continue the acapella use and to abstain from smoking. Should he have any further problems he could contact Dr Olsen or Dr García through the office or return to the ED for emergent evaluation. Problems: DVT Prophylaxis: [facility]CD'S GI Prophylaxis: Protonix Code Status Full Code Home Meds Active Scripts Azithromycin (Zithromax)250 Mg Tablet1 Tab PO DAILY 5 Days TAKE TWO ON DAY ONE, THEN ONE TAB DAILY UNTIL ALL TAKEN. Prov:MINNA BENTLEY DO 06/12/14 Fluticasone/Salmeterol (Advair 250-50 Diskus)1 Disk W/Dev Inhaler1 Puff ORAL INH RTBID 14 Days Prov:MINNA BENTLEY DO 06/12/14 Hydrocodone/Acetaminophen (Hydrocodon-Acetaminoph 7.5-325)1 Tab Tablet1 Tab PO Q4H PRN (PAIN) #30 TAB Prov:MINNA BENTLEY DO 06/12/14 Cyclobenzaprine HCl 10 Mg Iamljz27 Mg PO TID PRN (MUSCLE PAIN) #30 TAB Prov:MINNA BENTLEY DO 06/12/14 Reported Medications [Anti Inflammatory ] Unknown Strength No Conflict CheckUnknown Dose 06/11/14 Tramadol HCl 50 Mg Seltzx27 Mg PO PRN 05/29/14 Alprazolam (Xanax)1 Mg Tablet1 Mg PO TID 05/29/14 Discharge Disposition stable Copies To 1: CHRISTINA OLSEN MD Copies To 2: LENNY GARCÍA MD, CARRIE DO Jun 12, 2014 17:40 Procedures No known history of procedures. Encounters Encounter Location Date/Time Discharged Inpatient [facility] 06/11/14 5:58pm Departed Emergency Room [facility] 05/29/14 12:09am Recent Diagnosis Asystole Vasovagal syncope Bronchitis Fever Scoliosis Tobacco dependency Fever Hemoptysis Asystole Cough
--- OUTSIDE RECORDS SUMMARY | 2016-10-28 00:09 | XMS REPORT | Referral Summary ---
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 Name Role Phone Mary Bteh Berry Primary Care Physician [phone] Encounter Date(s): 10/26/14 - 10/26/14 [facility] [address] [place] [id number] Discharge Diagnosis: Anxiety Discharge Diagnosis: Acute low back pain Discharge Diagnosis: Right hip pain Discharge Disposition: 01-Home or Self Care Attending Physician: Kole Berry MD Admitting Physician: Kole Berry MD Vital Signs Most recent to 1 oldest [Reference Range]: Temperature Tympanic 36.7 degC [36.6-38.1 degC] (10/26/14 3:12 PM) Peripheral Pulse 104 bpm Rate [60-100 bpm] *HI* (10/26/14 3:12 PM) Blood Pressure 128/72 mmHg [90-140/60-90 mmHg] (10/26/14 3:12 PM) Problem List Condition Effective Dates Status Health Status Informant Anxiety(Confirmed) Active Chronic low back Active pain(Confirmed) Radiculopathy(Confir Active med) Allergies, Adverse Reactions, Alerts No Known Medication Allergies Substance Reaction Severity Status Latex Active Medications cyclobenzaprine 10 mg oral tablet 10 mg 1 tabs, Oral, TID, as needed for spasm, # 60 tabs, 0 Refill(s) Start Date: 01/16/15 Status: Ordered diclofenac sodium 75 mg oral delayed release tablet 75 mg 1 tabs, Oral, BID, # 60 tabs, 0 Refill(s) Start Date: 01/16/15 Status: Ordered diclofenac sodium 75 mg oral delayed release tablet 75 mg 1 tabs, Oral, BID, # 60 tabs, 1 Refill(s), [id number], 1 tabs Oral BID Start Date: 11/14/14 Status: Ordered HYDROcodone-acetaminophen 5 mg-325 mg oral tablet 2 tabs, Oral, q6hr, as needed for pain, last fill per dr berry, # 40 tabs, 0 Refill(s) Start Date: 11/29/14 Status: Ordered traMADol 50 mg oral tablet 50 mg 1 tabs, Oral, q4hr, as needed for pain, [facility], # 50 tabs, 0 Refill(s), 1 tabs Oral q4hr Start Date: 12/05/14 Status: Ordered Xanax 1 mg oral tablet 1 mg, Oral, TID, as needed for anxiety, # 30 tabs, 0 Refill(s) Start Date: 10/10/14 Status: Ordered Results No data available for this section Immunizations Vaccine Date Refusal Reason tetanus/diphth/pertuss (Tdap) adult/adol 09/04/13 Procedures No data available for this section Social History Social History Type Response Smoking Status Current every day smoker; Tobacco use per day: 1 Pack; Number of years: 12 Assessment and Plan Extracted from: Title: Ambulatory Patient Education Author: Kole Berry MD Date: Family Medicine Back Exercises Back exercises help treat and prevent back injuries. The goal of back exercises is to increase the strength of your abdominal and back muscles and the flexibility of your back. These exercises should be started when you no longer have back pain. Back exercises include: Pelvic Tilt. Lie on your back with your knees bent. Tilt your pelvis until the lower part of your back is against the floor. Hold this position 5 to 10 sec and repeat 5 to 10 times. Knee to Chest. Pull first 1 knee up against your chest and hold for 20 to 30 seconds, repeat this with the other knee, and then both knees. This may be done with the other leg straight or bent, whichever feels better. Sit-Ups or Curl-Ups. Bend your knees 90 degrees. Start with tilting your pelvis, and do a partial, slow sit-up, lifting your trunk only 30 to 45 degrees off the floor. Take at least 2 to 3 seconds for each sit-up. Do not do sit-ups with your knees out straight. If partial sit-ups are difficult, simply do the above but with only tightening your abdominal muscles and holding it as directed. Hip-Lift. Lie on your back with your knees flexed 90 degrees. Push down with your feet and shoulders as you raise your hips a couple inches off the floor; hold for 10 seconds, repeat 5 to 10 times. Back arches. Lie on your stomach, propping yourself up on bent elbows. Slowly press on your hands, causing an arch in your low back. Repeat 3 to 5 times. Any initial stiffness and discomfort should lessen with repetition over time. Shoulder-Lifts. Lie face down with arms beside your body. Keep hips and torso pressed to floor as you slowly lift your head and shoulders off the floor. Do not overdo your exercises, especially in the beginning. Exercises may cause you some mild back discomfort which lasts for a few minutes; however, if the pain is more severe, or lasts for more than 15 minutes, do not continue exercises until you see your caregiver. Improvement with exercise therapy for back problems is slow. See your caregivers for assistance with developing a proper back exercise program. Document Released: 06/25/2005 Document Revised: 08/09/2012 Document Reviewed: [facility] Patient Information 2014 [employer] [facility]. No follow up information was provided. Extracted from: Title: Office Visit Note Author: Kole Berry MD Date: 10/26/14 Assessment/Plan Acute low back pain I wrote for some hydrocodone today to be used on a when necessary basis along with his cyclobenzaprine heat and rest. He is interested in chronic pain management he'll schedule an appointment and let me know when that is all approved for referral. Ordered: Office Visit Level 3 Est 37612 XR Pelvis 1 or 2 Views Anxiety Continue alprazolam at its current dosage. Ordered: Office Visit Level 3 Est 20866 Right hip pain Pelvic and right hip films were ordered for further evaluation today. Ordered: Office Visit Level 3 Est 13968 XR Hip Complete Right XR Pelvis 1 or 2 Views Orders: HYDROcodone-acetaminophen, 2 tabs, Oral, q6hr, as needed for pain, # 40 tabs, 0 Refill(s)
--- OUTSIDE RECORDS SUMMARY | 2016-10-28 00:10 | XMS REPORT | Continuity of Care Document ---
Author Author [facility] Organization [facility] Address Unknown Phone Unavailable Support Name Relationship Address Phone CHRISTINA OLSEN MD Caregiver [address] [facility] [place] [phone] HAYES BRANTLEY MD Caregiver [address] [place] [phone] BRITTNEY SAWYER Next Of Kin [address] [place], [place] [id number] Insurance Providers Payer Name Policy Number Subscriber Name Relationship Self Pay Lakhwinder Sawyer 18 Self Problems Medical Problems Problem Onset Date Status Anxiety Unknown Active Atypical chest pain Unknown Active Self mutilating behavior Unknown Active Accidental overdose Unknown Active Self mutilating behavior Unknown Active Medications Medication Dose Route Sig Days/Qty Instructions Order Date Discontinued Date Status [No Regular Meds] 05/17/08 09/04/13 Discontinued Gabapentin 200 Mg PO TWICE A DAY 09/21/12 08/31/13 Discontinued Amitriptyline Hcl 10 Mg PO TWICE A DAY 09/21/12 08/31/13 Discontinued Clonazepam 1 Mg PO TID PRN 09/04/13 Active Sertraline Hcl 50 Mg PO DAILY 09/04/13 Active Social History Social History Problem Response Recorded Date/Time Chewing Tobacco Status No 09/04/2013 12:50am Hx Substance Use No 09/04/2013 12:50am Hx Alcohol Use Y STATES ABOUT 3 TIMES A WEEK-BEER 09/04/2013 12:50am Query Response Start Date Stop Date Smoking Status Current every day smoker Hospital Discharge Instructions No hospital discharge instructions. Plan of Care No plan of care. Functional Status No functional status results. Allergies, Adverse Reactions, Alerts Allergen Type Severity Reaction Status Last Updated Latex Allergy Severe Active 02/27/14 Immunizations Name Given Type Hx Influenza Vaccination No Historical Hx Pneumococcal Vaccination No Historical Hx Tetanus, Diptheria, Pertussis Yes Historical Hx Influenza Vaccination No Historical Hx Tetanus, Diptheria, Pertussis Yes Historical Vital Signs Acute Vital Signs Vital Response Date/Time Temperature (Fahrenheit) 98.2 deg F (96.8 - 99.1) Temperature (Calculated Celsius) 36.35015 degrees C (36.0 - 37.3) Pulse Rate (adult) 74 bpm (60 - 100) Respiratory Rate 20 breaths/min (10 - 20) O2 Sat by Pulse Oximetry 98 % (90 - 100) Blood Pressure 134/74 mm Hg Height (Feet) 5 feet Height (Inches) 7 inches Weight (Kilograms) 72.7 kg Body Mass Index (BMI) 25.0 Results Test Source Date Result Interp. Ref. [...] Has specimen been collected/obtained? Y Urine Specific [place] September 04, 2013 2:15am >=1.030 H - [...] Report September 07, 2013 3:14pm REFERENCE LAB [id number] - HIV (1&2) Antibody Rapid July 21, [...] indicated - Has specimen been collected/obtained? Y Name: LAKHWINDER SAWYER Unit #: [id number] : 1985 Sex: M Loc / Svc: SHELLY DOS: 01/16/14 Signed Report #: [id number] DIAGNOSTIC IMAGING REPORT TYPE OF EXAM: MRI LUMBAR SPINE W/O CONTRAST Dictated By: ISRAEL DIAMOND MD INDICATION: ITS.REASON: 724.2 LOW BACK PAIN MRI LUMBAR SPINE W/O CONTRAST: Comparisons: Lumbar spine radiographs dated September 21, 2012 Technique: Multiplanar, multisequence, lumbar protocol MR imaging without contrast of the spine was acquired. FINDINGS: The alignment of the lumbar spine is normal. The conus medullaris, cauda equina , subarachnoid space , and spinal canal demonstrate no significant abnormality. There are no significant degenerative changes. The paraspinal soft tissues and prevertebral soft tissues appear unremarkable. Segmental analysis: L1-L2: Normal L2-L3: Normal L3-L4: Normal L4-L5: Normal L5-S1: Normal IMPRESSION: Normal MRI of the lumbar spine. . Procedures No known history of procedures. Encounters Encounter Location Date/Time Departed Emergency Room [facility] 02/27/14 4:03pm Registered Clinic [facility] 01/16/14 4:17pm Recent Diagnosis
--- OUTSIDE RECORDS SUMMARY | 2016-10-28 00:13 | XMS REPORT | Continuity of Care Document ---
Author Author [facility] Organization [facility] Address Unknown Phone Unavailable Allergies Active Description [...] NA 5.0-8.0 Protein Negative NA Negative Specific [place] 1.020 NA 1.003-1.030 UA Collection type Clean [...] Status Pt. Type Provider Facility Loc./Unit Complaint [id number] 08/31/2013 14:18:00 08/31/2013 23 :59:59 CLS Outpatient
--- OUTSIDE RECORDS SUMMARY | 2016-10-28 00:13 | XMS REPORT | Continuity of Care Document ---
Author Author [facility] Organization [facility] Address Unknown Phone Unavailable Support Name Relationship Address Phone SAY MITCHELL MD Caregiver [address] [place] [address] [place] [id number] BERT RADFORD MD Caregiver [facility] [address] [place] [address] Unavailable AGUS MARIE Caregiver [address] [place], [place] [phone] CHRISTINA OLSEN MD Caregiver [address] [place] [address] [phone] BRITTNEY SAWYER Next Of Kin [address] [place] [address] Insurance Providers Payer Name Policy Number Subscriber [...] having problems relating to your surgery at [phone]. 2. Problems such as: Temp above 101.5 degrees You develop redness, excessive swelling of the incision, increasing pain or excessive foul smelling drainage. 3. If the office is closed, call [facility] at [phone] and have your Surgeon paged. Condition at [...] Report September 07, 2013 3:14pm REFERENCE LAB [id number] - Lymphocytes # (Auto) June 12, 2014 [...] Has specimen been collected/obtained? Y Urine Specific [place] September 04, 2013 2:15am >=1.030 H - [...] 24 HOURS Name: LAKHWINDER SAWYER Unit #: [id number] : 1985 Sex: M DISCHARGE SUMMARY Admit Date: 06/11/14 Report #: [id number] General Date Date DATE: 06/12/14 TIME: 17:34 [...] BENTLEY DO 06/12/14 Cyclobenzaprine HCl 10 Mg [id number] Mg PO TID PRN (MUSCLE PAIN) #30 TAB Prov:MINNA BENTLEY DO 06/12/14 Reported Medications [Anti Inflammatory ] Unknown Strength No Conflict CheckUnknown Dose 06/11/14 Tramadol HCl 50 Mg [id number] Mg PO PRN 05/29/14 Alprazolam (Xanax)1 Mg Tablet1 Mg PO TID 05/29/14 Discharge Disposition stable Copies To 1: CHRISTINA OLSEN MD Copies To 2: LENNY GARCÍA MD, CARRIE DO Jun 12, 2014 17:40 Procedures No known history of procedures. Encounters Encounter Location Date/Time Discharged Inpatient [facility] 06/11/14 5:58pm Departed Emergency Room [facility] 05/29/14 12:09am Recent Diagnosis Asystole Vasovagal syncope Bronchitis Fever Scoliosis Tobacco dependency Fever Hemoptysis Asystole Cough
--- OUTSIDE RECORDS SUMMARY | 2016-10-28 00:14 | XMS REPORT | Continuity of Care Document ---
Author Author [facility] Organization [facility] Address Unknown Phone Unavailable Support Name Relationship Address Phone BERT RADFORD MD Caregiver [facility] [address] [place] [address] Unavailable CHRISTINA OLSEN MD Caregiver [address] [place] [address] [phone] BRITTNEY SAWYER Next Of Kin [address] [place] [address] Insurance Providers Payer Name Policy Number Subscriber [...] F (96.8 - 99.1) Temperature (Calculated Celsius) 36.25831 degrees C (36.0 - 37.3) Pulse Rate [...] Has specimen been collected/obtained? Y Urine Specific [place] September 04, 2013 2:15am >=1.030 H - [...] Report September 07, 2013 3:14pm REFER[facility] LAB [id number] - HIV (1&2) Antibody Rapid July 21, [...] Encounters Encounter Location Date/Time Registered Emergency Room [facility] 05/29/14 12:09am Recent Diagnosis
--- OUTSIDE RECORDS SUMMARY | 2016-10-28 00:14 | XMS REPORT | Continuity of Care Document ---
Author Author [facility] Organization [facility] Address Unknown Phone Unavailable Support Name Relationship Address Phone CHRISTINA OLSEN MD Caregiver [address] [facility] [place] [phone] HAYES BRANTLEY MD Caregiver [address] [facility] [place] [phone] BRITTNEY SAWYER Next Of Kin [address] [place], [place] [id number] Insurance Providers Payer Name Policy Number Subscriber [...] F (96.8 - 99.1) Temperature (Calculated Celsius) 36.92719 degrees C (36.0 - 37.3) Pulse Rate [...] Has specimen been collected/obtained? Y Urine Specific [place] September 04, 2013 2:15am >=1.030 H - [...] Report September 07, 2013 3:14pm REFER[facility] LAB [id number] - HIV (1&2) Antibody Rapid July 21, [...] collected/obtained? Y Name: LAKHWINDER SAWYER Unit #: [id number] : 1985 Sex: M Loc / Svc: SHELLY DOS: 01/16/14 Signed Report #: [id number] DIAGNOSTIC IMAGING REPORT TYPE OF EXAM: MRI [...] Encounters Encounter Location Date/Time Departed Emergency Room [facility] 02/27/14 4:03pm Registered Clinic [facility] 01/16/14 4:17pm Recent Diagnosis
[2016-10-28] MEDS ORDERED: NORMAL SALINE 1,000 ML IV ONE (00:15)
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
[2016-10-28 00:23] LABS: BASOPHILS % (AUTO) 0.2 % (0-2); EOSINOPHILS # (AUTO) 0.2 T/MM3 (0-0.5); HCT - HEMATOCRIT 49.7 % (41-53); HGB - HEMOGLOBIN 16.9 GM/DL (13.5-17.5); IMMATURE GRANULOCYTE # (AUTO) 0.02 T/MM3 (0.00-0.03); IMMATURE GRANULOCYTE % (AUTO) 0.2 % (0.0-0.5); LYMPHOCYTES # (AUTO) 3.5 T/MM3 (1-4.8); LYMPHOCYTES % (AUTO) 36.3 % (23-45); MEAN CORPUSCULAR HGB 32.1 UUG (26-34); MEAN CORPUSCULAR VOLUME 94.3 UM3 (80-100); MEAN PLATELET VOLUME 9.3 UM3 (9.4-12.4); MONOCYTES # (AUTO) 0.6 T/MM3 (0-0.8); MONOCYTES % (AUTO) 6.4 % (0-9.0); NEUTROPHILS #(AUTO)-ABSOLUTE 5.3 T/MM3 (1.8-7.7); NEUTROPHILS % (AUTO) 54.9 % (33-66); RED BLOOD COUNT 5.27 M/MM3 (4.50-5.90); WBC - WHITE BLOOD COUNT 9.6 T/MM3 (4.5-11.0)
[2016-10-28 00:40] LABS: ALBUMIN/GLOBULIN RATIO 1.7 RATIO (1.1-2.2); ALKALINE PHOSPHATASE 78 U/L (38-126); ALT (SGPT) 32 U/L (21-72); ANION GAP 19 MEQ/L (5-15); AST (SGOT) 26 U/L (17-59); BUN/CREATININE RATIO 9 RATIO (6-26); CALCIUM 9.8 MG/DL (8.4-10.2); CHLORIDE 106 MEQ/L (98-107); CO2 - CARBON DIOXIDE 23 MEQ/L (22-30); CREATININE 0.9 MG/DL (0.8-1.5); ETHANOL 127 MG/DL (<10); GLOMERULAR FILTRATION RATE 97; GLUCOSE 96 MG/DL (75-110); POTASSIUM 3.6 MEQ/L (3.6-5); SODIUM 148 MEQ/L (134-144)
[2016-10-28 01:35] LABS: AMPHETAMINE SCREEN,URINE NEGATIVE; BARBITURATE SCREEN,URINE NEGATIVE; BENZODIAZEPINES SCREEN,URINE NEGATIVE; CANNABINOID SCREEN,URINE NEGATIVE; COCAINE SCREEN,URINE NEGATIVE; METHADONE SCREEN, URINE NEGATIVE; METHAMPHETAMINE SCREEN, URINE NEGATIVE; OPIATE SCREEN,URINE POSITIVE; PHENCYCLIDINE SCREEN,URINE NEGATIVE; TRICYCLIC ANTIDEPRESSANT,URINE NEGATIVE
[2016-10-28 01:55] VITALS: BP 116/74; PULSE 88; RESP 18; O2SAT 94
--- NOTE | 2016-10-28 01:55 | NUR ---
DEPART PT IS GIVEN DISMISSAL INSTRUCTIONS WITH VERBAL UNDERSTANDING. PT LEAVES WITH [place] [employer] IN [place]
== END 2016-10-28 01:55 | disposition home or self-care (01) ==
LOC: ED 00:01
DX: F10.121 Alcohol abuse with intoxication delirium (principal); F11.90 Opioid use, unspecified, uncomplicated; Y90.6 Blood alcohol level of 120-199 mg/100 ml
CPT/HCPCS: 80053; 80306; 80307; 85025